=== PATIENT | female | born 1945 | race Caucasian/White ===

== ENCOUNTER → 2019-07-06 08:55 | Outpatient (CLI) | payer MEDICARE, MEDICAID, OTHER, SELFPAY ==
[2019-06-21 15:16] VITALS: BMI 31.8
--- NOTE | 2019-07-06 09:02 | ECHOD_ITS ---
Reason For Study: Afib/Flutter Procedure This was a 2D Doppler, Color Flow transthoracic echocardiogram. Contrast injection was performed. Exam performed in department. Left Ventricle Normal size and thickness. The estimated ejection fraction is 65 %. Stage 1 diastolic dysfunction. No regional wall motion abnormalities noted. Right Ventricle Normal size and thickness. Normal systolic function. Atria Normal left atrium. Normal right atrium. Normal atrial septum. Bubble contrast study negative for right to left interatrial shunt. Mitral Valve The mitral valve is structurally normal. No prolapse or stenosis seen. Tricuspid Valve Normal tricuspid valve. Trivial tricuspid valve insufficiency. Right ventricular systolic pressure estimated to be 29 mmHg. Aortic Valve Trisinus/trileaflet aortic valve. Pulmonic Valve Normal pulmonic valve. Great Vessels Normal aortic root. Normal arch. Normal inferior vena cava. Inferior vena cava collapse with sniff. Pericardium/Pleural No pericardial effusion. Medication 22 gauge I.V. with prn adaptor inserted into right arm. Performed a rapid injection of agitated mix of 9 cc saline and 1cc air to assess for atrial septal defect. MMode/2D Measurements & Calculations LVIDd: 4.3 cm IVSd: 1.1 cm Ao root diam: 3.1 cm LVIDs: 2.8 cm LVPWd: 1.1 cm LA dimension: 3.7 cm FS: 35.7 % LAV(MOD-bp): 40.1 ml LA A4 area: 14.8 cm2 LAV(MOD-bp) Indexed: 23.5 ml/m2 LAV(MOD-sp2): 43.9 ml LAV(MOD-sp4): 37.4 ml Time Measurements MV dec time: 0.26 sec Doppler Measurements & Calculations MV E max [place]: 76.6 cm/sec Lat Peak E' [place]: 2.8 cm/sec Med Peak E' [place]: 3.1 cm/sec MV A max [place]: 110.0 cm/sec E/E' lat: 27.0 E/E' med: 24.7 MV E/A: 0.70 MV V2 max: 129.0 cm/sec MV P1/2t max [place]: 85.7 cm/sec Ao V2 max: 144.2 cm/sec MV max P.7 mmHg MV P1/2t: 94.6 msec Ao max P.3 mmHg MV V2 mean: 57.1 cm/sec MV dec slope: 265.3 cm/sec2 Ao V2 mean: 96.6 cm/sec MV mean P.6 mmHg Ao mean P.1 mmHg MV V2 VTI: 36.1 cm MVA(P1/2t): 2.3 cm2 Ao V2 VTI: 31.2 cm LV V1 max: 110.5 cm/sec PA V2 max: 92.0 cm/sec PI dec slope: 178.3 cm/sec2 LV V1 max P.9 mmHg LV V1 mean P.3 mmHg LV V1 mean: 69.5 cm/sec LV V1 VTI: 25.8 cm TR max [place]: 244.1 cm/sec TR max P.8 mmHg Interpretation Summary The estimated ejection fraction is 65 %. Stage 1 diastolic dysfunction. Trivial tricuspid valve insufficiency. Right ventricular systolic pressure estimated to be 29 mmHg. Bubble contrast study negative for right to left interatrial shunt. Compared to echo report dated 09/18/2011, no appreciable changes noted. Pt appears to be in NSR. There is no comparison study available. Ordering Physician: Filiberto Dhaliwal Referring Physician: Filiberto Dhaliwal Performed By: Mart Ordoñez RCS
--- NOTE | 2019-07-06 09:02 | CDU_ITS ---
Reason For Study: CVA Rt. Velocities/BP Lt. Velocities/BP Prox CCA 79.9/10.8 cm/sec. Prox CCA 76.1/14.6 cm/sec. Mid CCA 65.6/9.5 cm/sec. Mid CCA 78.3/13.5 cm/sec. Dist CCA 77.3/14.7 cm/sec. Dist CCA 76.1/14.6 cm/sec. Prox ICA 104.7/15.2 cm/sec. Prox ICA 76.1/14.6 cm/sec. Mid ICA 95.5/18.8 cm/sec. Mid ICA 77.7/22.5 cm/sec. Dist ICA 93/18.6 cm/sec. Dist ICA 88.8/22.5 cm/sec. Rt. ICA/CCA = 1.4. Lt. ICA/CCA = 1.2. Prox ECA 98.2/10.8 cm/sec. Prox ECA 101.1/7.7 cm/sec. Rt. Vert. 54.2/10.2 cm/sec. Lt. Vert. 44.7/8.8 cm/sec. Right Extracranial There is homogeneous, smooth atherosclerotic plaque noted in the right common carotid artery. There is heterogeneous, irregular atherosclerotic plaque noted in the right internal carotid artery. There is heterogeneous, irregular atherosclerotic plaque noted in the right external carotid artery. Antegrade flow is noted in the right vertebral artery. Left Extracranial There is homogeneous, smooth atherosclerotic plaque noted in the left common carotid artery. There is heterogeneous, irregular atherosclerotic plaque noted in the left internal carotid artery. There is homogeneous, smooth atherosclerotic plaque noted in the left external carotid artery. Antegrade flow is noted in the left vertebral artery. Procedure Carotid Duplex 11598. Exam performed in department. Interpretation Summary Mild (<50%) stenosis right extracranial internal carotid. Mild (<50%) stenosis left extracranial internal carotid. Flow within the vertebral arteries is antegrade bilaterally. Ordering Physician: Filiberto Dhaliwal Referring Physician: Philomena Gamez Performed By: Payal West RVT
== END ==
PROVIDERS: Family Provider Family Medicine; PCP Physician Assistant; Referring Provider Internal Medicine Cardiovascular Disease; Visit Provider Internal Medicine Cardiovascular Disease
DX: R00.2 Palpitations (principal); R09.89 Other specified symptoms and signs involving the circulatory and respiratory systems
CPT/HCPCS: 93306; 93880; A4216

== ENCOUNTER → 2019-07-13 10:19 | Outpatient (CLI) | payer MEDICARE, MEDICAID, OTHER, SELFPAY ==
[2019-06-21 15:16] VITALS: BMI 31.8
--- NOTE | 2019-07-13 10:19 | STEWCON_ITS ---
Reason For Study: afib/flutter Stress Results Protocol: Dobtuamine Stress Echo Maximum Predicted HR: 149 bpm Target HR: 127 bpm % Maximum Predicted HR: 89 % DurationHeart Rate Stage (mm:ss) (bpm) BP Dose Comment baseline 63 170/81 7ml total definity given stage 1 3:21 67 182/8410.00 stage 2 3:00 81 174/8220.00 stage 3 3:00 111 182/7030.00 stage 4 2:51 133 / chest pain 8/10, mild shortness of breath recovery 80 170/82 chest pain resolved, shortness of breath resolved Stress Duration: 12:12 mm:ss Maximum Stress HR: 133 bpm Baseline Echocardiogram Findings The estimated ejection fraction is 65 %. Stress Echo Wall motion Data Resting WM Intermediate WM Stress WM Resting Wall Motion Wall Motion Stress No regional wall motion Mid-Anterior : Mildly abnormalities noted. hypokinetic. Basal anteroseptal: Mildly hypokinetic. Mid-anteroseptal : Mildly hypokinetic. EKG Data The baseline ECG displays normal sinus rhythm. The patient was titrated from 10 mcg to a maximun of 30 mcg of dobutamine during the stress. The maximum heart rate attained was 134 beats per minute. This was 89% of maximum predicted heart rate. During dobutamine infusion, there were no ST or T wave changes noted to suggest ischemia. Interpretation Summary The estimated ejection fraction is 65 %. Mid-Anterior : Mildly hypokinetic Basal anteroseptal: Mildly hypokinetic Mid-anteroseptal : Mildly hypokinetic Abnormal, adequate, dobutamine echocardiogram. Positive for ischemia by echocardiographic criteria. Mild PVCs noted. Hypertensive blood pressure response to dobutamine. In addition the patient developed 8 out of 10 chest pain during infusion which resolved during recovery. Final LVEF of 55%. Decrease sensitivity due to poor echo windows requiring Definity agent. Patient tolerated procedure well. The study was technically difficult. Contrast injection was performed. Ordering Physician: Filiberto Dhaliwal Referring Physician: Filiberto Dhaliwal Performed By: Risa Fraire, SUJEY, RVT
== END ==
PROVIDERS: Family Provider Family Medicine; PCP Physician Assistant; Referring Provider Internal Medicine Cardiovascular Disease; Visit Provider Internal Medicine Cardiovascular Disease
DX: I48.91 Unspecified atrial fibrillation (principal); R00.2 Palpitations; I25.10 Atherosclerotic heart disease of native coronary artery without angina pectoris; E66.9 Obesity, unspecified; G47.33 Obstructive sleep apnea (adult) (pediatric); Z86.73 Personal history of transient ischemic attack (TIA), and cerebral infarction without residual deficits
CPT/HCPCS: 93017; 93350; J7040; Q9957; A4216; C8928

== ENCOUNTER 2019-07-20 06:51 | Day surgery (SDC) | payer MEDICARE, OTHER, MEDICAID, SELFPAY ==
--- NOTE | 2019-06-21 04:17 | HP_ITS ---
HPI HPI History of Present Illness Surgical H&P: Yes Details: Mrs. Ibanez is a very pleasant 73-year-old female with a history of hypertension, obstructive sleep apnea diagnosed several years ago but unable to use CPAP, hyperlipidemia, diabetes, diabetic neuropathy, obstructive sleep apnea, coronary artery disease with history of left heart catheterization on at [facility] on 10/08/2010 which demonstrated nonobstructive coronary artery disease and LV function at the lower limit of normal. There is minimal plaquing of the proximal LAD. She had repeat catheterization on 09/24/[address] Curiel which showed minimal nonobstructive coronary disease and a history of stroke on 02/01/2019. In fact, the patient states that she has had a total of 5 strokes with residual right lower extremity weakness. Patient was seen by neurology at [facility] in 2018 for suspected stroke and was noted to have a right basal ganglia infarct along with small vessel disease. She does not appear to have been placed on anticoagulation therapy at that time. Patient has residual right lower extremity weakness, requiring her to use a leg brace. She had carotid ultrasound done on 02/01/2019 which showed mild irregular mixed plaque bilaterally. The patient had a 24-hour Holter report on 07/12/2018 and [facility] which showed rare atrial ectopy rare ventricular ectopy and no documented symptomatic events. Her most recent stress test on 03/13/2014 and [facility] showed reversible apical perfusion defect suspicious for ischemia. She subsequently underwent a dobutamine echocardiogram which was normal. No repeat catheterization is taken place since that time. Patient has been seen by Dr. Angella Higgins in April 2014 and atenolol was initiated at that time. Her most recent echocardiogram dated 02/01/2019 showed normal LV size and function with an EF of 60%, negative bubble study. On further history, the patient complains of chest pain on and off for years, mostly at rest but occasionally with exertion but most recently having worsening dyspnea on exertion, shortness of breath, and lower extremity edema. Patient has had chronic lower extremity edema but it appears to have worsened over the last several months. Patient states that she can only walk about half a block on flat ground before she has to stop due to dyspnea. She does walk with a cane. She has no associated nausea, vomiting, left arm pain, dizziness or diaphoresis. In addition she occasionally complains of heart racing, mostly when she is sitting watching television. She does drink a copious amount of diet Pepsi with caffeine however. She does not drink alcohol and has never smoked. In our office today her blood pressure is 130/64, and pulse is 80 and regular. Physical exam demonstrates no carotid bruits however she has a pronounced visible pulsation in her right carotid area, with 2+ upstroke bilaterally, clear lungs bilaterally, regular rate and rhythm, normal S1/S2. She has 1+ bilateral lower extremity edema left greater than right. EKG dated 09/09/2011 shows normal sinus rhythm, normal axis, normal intervals, no evidence of previous myocardial infarction. Lipid profile dated 02/28/2019 showed an HDL of 40 and an LDL of 127. Intake Vital Signs 06/21/19 Height 4 ft 11.75 in 06/21/19 Weight: 162 lb 06/21/19 BMI 31.8 06/21/19 BP 130/64 H 06/21/19 Blood Pressure Location Lt brachial 06/21/19 Position Sitting 06/21/19 Respiration 20 H 06/21/19 Pulse 80 06/21/19 Pulse Source Auscultation Intake Visit Reasons: PALPS ([facility] PCP) Allergies No Known Allergies Allergy (Verified 06/20/19 19:28) Medications cholecalciferol (vitamin D3) 1,250 mcg (50,000 unit) capsule 50,000 unit PO QWEEK 04/28/19 [History Confirmed 04/28/19] dulaglutide 1.5 mg/0.5 mL subcutaneous pen injector 1.5 mg SC QWEEK 04/28/19 [History Confirmed 04/28/19] ezetimibe 10 mg tablet 10 mg PO DAILY 04/28/19 [History Confirmed 06/21/19] gabapentin 300 mg capsule 300 mg PO QHS 04/28/19 [History Confirmed 04/28/19] hydrochlorothiazide 12.5 mg tablet 12.5 mg PO DAILY 04/28/19 [History Confirmed 04/28/19] insulin glargine 100 unit/mL (3 mL) subcutaneous pen 44 unit SC QHS ml 04/28/19 [History Confirmed 06/21/19] levothyroxine 25 mcg tablet 25 mcg PO DAILY 04/28/19 [History Confirmed 06/21/19] lisinopril 20 mg tablet 20 mg PO DAILY 04/28/19 [History Confirmed 06/21/19] metoprolol succinate 50 mg tablet,extended release 24 hr 50 mg PO DAILY 04/28/19 [History Confirmed 06/21/19] rosuvastatin 40 mg tablet 40 mg PO DAILY 04/28/19 [History Confirmed 06/21/19] aspirin 81 mg tablet,delayed release 81 mg PO DAILY 06/21/19 [History Confirmed 06/21/19] clopidogrel 75 mg tablet 75 mg PO DAILY #30 tab 06/21/19 [Rx Confirmed 06/21/19] dulaglutide 1.5 mg/0.5 mL subcutaneous pen injector 1.5 mg SC QWEEK 06/21/19 [History Confirmed 06/21/19] escitalopram oxalate 20 mg tablet 20 mg PO DAILY tab 06/21/19 [History Confirmed 06/21/19] insulin lispro 100 unit/mL subcutaneous pen 5 unit SC QACDINNER ml 06/21/19 [History Confirmed 06/21/19] meclizine 12.5 mg tablet 12.5 mg PO TID PRN 06/21/19 [History Confirmed 06/21/19] [facility] Medical History Palpitations (Chronic) Atherosclerosis of coronary artery of [place] heart without angina pectoris (Chronic) Obesity (Chronic) Stroke (Chronic 02/01/19) MILE (obstructive sleep apnea) (Chronic) GERD (gastroesophageal reflux disease) (Chronic) Diabetes mellitus (Chronic) Diabetic neuropathy (Chronic) Hypertension (Chronic) Hypothyroidism (Chronic) Hyperlipidemia (Chronic) Anxiety (Chronic) Depression (Chronic) Insomnia (Chronic) Lymphadenopathy (Chronic) Osteoarthritis (Chronic) Osteopenia (Chronic) Vitamin D deficiency (Chronic) Surgical History History of left heart catheterization (Chronic 09/24/11) History of back surgery (Chronic) History of cholecystectomy (Chronic) History of foot surgery (Chronic) History of tubal ligation (Chronic) Family History Mother CAD (coronary artery disease) CVA (cerebral vascular accident) Thyroid disorder Brother CAD (coronary artery disease) Hypertension Diabetes Sister CAD (coronary artery disease) Thyroid disorder Colon cancer Daughter CAD (coronary artery disease) Grandmother Skin cancer Social History (Updated 06/21/19 @ 16:17 by Filiberto Dhaliwal MD) Smoking Status: Never smoker alcohol intake: never ROS Const Const: Negative for fatigue, weakness, body ache, fever(s), headache(s), chills, frequent falls, night sweats, daytime sleepiness, difficulty sleeping, excessive sweating, weight gain, weight loss, increased appetite, poor appetite, anorexia or other Eyes Eyes: Negative for blind spots, loss of peripheral vision, transient loss of vision, blurry vision, change in vision, double vision, floaters, tunnel vision or other ENT ENT: Negative for headache(s), dizziness, hearing loss, tinnitus, Nosebleed/epistaxis, balance problems, post nasal drip, lip swelling, tongue swelling, bleeding gums, hoarseness, neck pain, dry mouth or other Cardio Chest Pain: No Resp Respiratory: Negative for SOB with activity, SOB at rest, SOB orthopnea\SOB lying down, Coughing up blood/hemoptysis, chest congestion, pain on inspiration, snoring, stridor, wheezing, crackles, paroxysmal nocturnal dyspnea or other GI GI: Negative nausea, vomiting, heartburn, constipation, belching, bloating, cramping, vomiting blood/hematemesis, bright, red blood in stools, black,tarry stools, loose stools, Difficulty Swallowing or other : Negative for hematuria, frequent nighttime urination/ nocturia, erectile dysfunction or abnormal vaginal bleeding Musc Musc: Negative for muscle aches/ myalgia, muscle weakness, joint pain or balance problems Skin Skin: Negative redness, non-healing lesions, rash, unusual bruising, skin ulcer, wounds, jaundice or other Neuro Neuro: Negative for dizziness, lightheadedness, near syncope, syncope, orthostatic symptoms, frequent falls, headache(s), weakness, confusion, memory loss, restless legs, blurry vision, double vision, vertigo, seizures, lack of coordination or other Eren Hematologic/Lymphatic: Negative for easy bleeding, easy bruising, enlarged lymph nodes or other Endo Endo: Negative for fatigue, cold intolerance, heat intolerance, excessive sweating, flushing, increased thirst/drinking, increased hunger, hair loss, hair growth or other Psych Psych: Negative for anxiety, depression, thoughts of harming anyone, thoughts of harming yourself, visual hallucinations, panic attacks or audible hallucinations Allergy Allergy/Immunology: Negative for throat swelling, Negative for tongue swelling, Negative for hives, Negative for rash, Negative for lip swelling Cardiology Exam Const Appearance: cooperative, healthy appearing and no acute distress Nutritional Appearance: well nourished Orientation: alert, oriented x3 and oriented to person Head Head: normal to inspection, normocephalic and atraumatic Nose: external nose normal Face and Sinus: face symmetric Mouth: oral mucosae normal Eyes General: appearance normal, both eyes and all related structures Eyelids: eyelids normal Conjunctivae: conjunctivae normal Pupils: PERRL and normal by confrontation EOM: EOM intact bilaterally Neck Neck: normal visual inspection and full ROM Carotids: normal carotid upstroke Chest Chest inspection: normal inspection of the chest Auscultation: Bilateral: Clear to Auscultation Cardio Palpation: normal PMI Rate: regular rate Rhythm: regular rhythm Heart sounds: S1 normal and S2 normal GI GI: normal to inspection, no hepatosplenomegaly and bowel sounds present Neuro General: alert, awake, oriented x3, CN's II-XI intact bilaterally and moves all extremities Skin Skin: no rashes or lesions noted Extremities Pulses: Normal: Right Femoral Pulse, Left Femoral Pulse, Right Dorsalis Pedis Pulse, Left Dorsalis Pedis Pulse, Right Posterior Tibial Pulse, Left Posterior Tibial Pulse, Right Radial Pulse, Left Radial Pulse Lower Extremity Edema: None: Bilateral Psych Psychological: normal affect Assessment & Plan 1. Atherosclerosis of coronary artery of [place] heart without angina pectoris I25.10 Mild, nonobstructive disease, EF 65 % per [facility] done 09/24/[address] Curiel @ [facility] Plan 1. Coronary artery disease: The patient complains of progressively worsening dyspnea on exertion, shortness of breath, decreased exercise capacity over the last several months. She also complains of both typical and atypical chest pain, but mostly at rest. She has had a cardiac work-up several years ago including a catheterization most recent of which was in 2011 which demonstrated nonobstructive coronary disease particularly of her proximal LAD. Given the patient's risk factors she may have had progression of coronary occlusive disease and despite a negative stress test, she may require repeat catheterization. To be sure, and given her history of stroke recently in February 2019, I am hesitant to proceed with left heart catheterization at this time. I would rather have the patient undergo a repeat dobutamine echocardiogram to determine if she has any evidence of anterior ischemia or otherwise ischemic territories. If this is grossly abnormal, the patient may require diagnostic coronary angiogram with a long sheath and a long [id number] J-wire to avoid inducing a CVA. In the meantime she will continue baby aspirin and we will add Plavix for presumed peripheral vascular disease and her previous CVA. We will hold off on anticoagulation until after her cardiac work-up has been completed. If she does not require repeat catheterization however, I would recommend discontinuation of Plavix and switching her to anticoagulation therapy given her chads vascular risk score. In addition I recommend discontinuation of her amlodipine as this may be contributing to her lower extremity edema but would continue hydrochlorothiazide, lisinopril and metoprolol. She will return in 2 weeks time for a blood pressure check. Orders Orders: 12 Lead EKG performed by [facility] Today Stress Test Echo w/o Contrast Today 2. Palpitations R00.2 Holter done 07/12/2018 @ [facility] showed NSR, <1% of scan PAC's and <1.1% PVC's. Some sinus tach with isolated aberrant beats. Plan 2. Palpitations: The patient has evidence of palpitations which apparently have not been adequately evaluated despite an aggressive cardiac work-up. I would recommend a 30-day event monitor in order to determine if she has evidence of paroxysmal atrial fibrillation. If she has evidence of atrial fibrillation at all, I would have a low threshold for lifelong anticoagulation given her multitude of strokes. I am uncertain why her current neurologist have not put her on anticoagulation or antiplatelet therapy other than baby aspirin. Orders Orders: 12 Lead EKG performed by [facility] Today 30 Day Event Recorder [employer] Today Echo Complete Today Stress Test Echo w/o Contrast Today Carotid Duplex Ultrasound Today 3. Stroke I63.9 3 mm X 8 mm focus in the posterior right parietal lobe per brain MRI 02/01/19. Pt states she has had 4 or 5 strokes. Plan 3. CVA: Again we will obtain a 30-day event monitor, 2D echo, and place her on dual antiplatelet therapy with baby aspirin and Plavix. If she has any evidence of atrial fibrillation on her event monitor I would discontinue her Plavix and add Eliquis or Coumadin. In addition the patient has what appears to be a profound pulsation in her right carotid area, but no evidence of carotid bruits. I recommended bilateral carotid ultrasound to evaluate her carotid system. Orders Orders: 12 Lead EKG performed by [facility] Today 30 Day Event Recorder [place] Today Stress Test Echo w/o Contrast Today 4. MILE (obstructive sleep apnea) G47.33 Plan 4. Obstructive sleep apnea: Unfortunately the patient is unable to tolerate her CPAP therapy. This may be contributing to her palpitations and paroxysmal atrial fibrillation. Orders Orders: 30 Day Event Recorder [place] Today Stress Test Echo w/o Contrast Today 5. Hyperlipidemia E78.5 Plan 5. Hyperlipidemia: Her most recent lipid profile showed adequate LDL reduction on dual antilipid therapy. Continue Crestor and Zetia. 6. Return office in 6 months. Plan Detail Other Orders Orders: Stress Test Echo w/o Contrast Today E66.9 Other Medications New: clopidogrel (Plavix) 75 mg PO DAILY 30 tabs 11RF Discontinued: amlodipine (Norvasc) Discontinued Reason: Order Changed 10 mg PO DAILY Follow Up +6M (Dhaliwal) +2 weeks (BP CHECK) Coding Level of Care Code Off vis,new,level 4 Diagnoses Atherosclerosis of coronary artery of [place] heart without angina pectoris I25.10 Palpitations R00.2 Stroke I63.9 MILE (obstructive sleep apnea) G47.33 Hyperlipidemia E78.5 Coding Level of Care Code Off vis,new,level 4 Diagnoses Atherosclerosis of coronary artery of [place] heart without angina pectoris I25.10 Palpitations R00.2 Stroke I63.9 MILE (obstructive sleep apnea) G47.33 Hyperlipidemia E78.5 06/21/19 1617 <Electronically signed by Filiberto Dhaliwal MD> Date _ Filiberto Dhaliwal MD
[2019-06-21 15:16] VITALS: BMI 31.8
[2019-07-18 09:42] VITALS: BMI 31.8
--- NOTE | 2019-07-18 09:53 | RAD_ITS ---
STUDY: X-RAY CHEST REASON FOR EXAM: Female, 73 years old. Preop heart catheter. TECHNIQUE: PA and lateral COMPARISON: None. FINDINGS: No evidence of pneumonia, pulmonary edema, pneumothorax or pleural effusion. Cardiac silhouette, hilar and mediastinal contours with no acute findings. Heart size normal. Atherosclerosis of the thoracic aorta. Degenerative osseous changes with no acute osseous abnormality. Cardiac monitoring device overlies the chest. Lumbar spine fusion hardware partially visible. Cholecystectomy surgical clips. RAD/Chest PA and Lateral IMPRESSION: No acute findings. Electronically Signed: David Veloz, at 8:01 EST Tel , Service support ,
[2019-07-18 11:14] LABS: Hematocrit 42.7 % (37-47); Hemoglobin 13.9 g/dL (12.0-15.0); Mean Corp Hgb Conc 32.6 g/dL (32-36); Mean Corpuscular Hgb 30.1 pg (27.0-32.0); Mean Corpuscular Volume 92.4 fL (81-99); Mean Platelet Vol. 9.6 fl (6.2-12.0); Platelet Count 308 K/mm3 (150-450); RBC Distribution Width CV 13.2 % (11.6-14.6); RBC Distribution Width SD 44.5 fl (35.1-43.9); Red Blood Count 4.62 M/mm3 (4.2-5.4); White Blood Count 6.6 K/mm3 (4.4-11.0)
[2019-07-18 11:20] LABS: Partial Thromboplast Time 33.1 Seconds (24.1-36.2); Prothrombin Time (Protime)PT. 13.2 SECONDS (11.7-14.9)
[2019-07-18 11:52] LABS: Anion Gap 7 (5-15); BUN 10 mg/dL (7-18); BUN/Creat Ratio 12.9 RATIO (10-20); Calcium,Total 9.6 mg/dL (8.5-10.1); Chloride 104 mmol/L (98-107); Creatinine, Serum 0.78 mg/dL (0.55-1.02); EST Glomerular Filtration Rate 78 mL/min (>60); Est Glom Filt Rate - Afr Amer 94 mL/min (>60); Glucose 83 mg/dL (74-106); Potassium 3.7 mmol/L (3.5-5.1); Sodium Level 138 mmol/L (136-145)
[2019-07-19 08:42] VITALS: BMI 31.6
[2019-07-20] VITALS (19 sets, daily range): BP systolic 123–201; BP diastolic 33–136; PULSE 57–83; RESP 9–22; TEMP 36.4–36.6; O2SAT 93–100; BMI 31.7; BMI 30.6
[2019-07-20 08:55] LABS: ACT Activated Clotting Time 241 sec (74-137)
--- NOTE | 2019-07-20 09:09 | CL.I_ITS ---
Patient Name: LAQUITA GILBERT Study Date: 07/20/2019 Performing: Filiberto Dhaliwal MD Ht: 60 inches 152 cm : 1945 Wt: 161.1 lbs 73 kg Age: 73 Gender: female BSA: 1.7 PROCEDURE(S) PERFORMED ND59-MAL/COR/LV NN11-KBO W OR WO PTCA, SINGLE CORONARY ARTERY CLINICAL PROFILE AND CO-MORBIDITIES Indications: New Onset Angina <= 2 months, Stable Known CAD Heart Failure: None Stress/Imaging Date: 07/13/2019 Stress Echocardiogram: Positive Low Risk Angina Classification Anginal Classification w/in 2 Weeks: Anginal Equivalent Dyspnea CAD Presentations: Unstable angina. Comorbidities/Risk Factors: Hypertension Dyslipidemia Diabetes Mellitus: Diabetes Therapy: Insulin CONCLUSIONS Normal LV size, wall motion,and systolic function Single vessel CAD of the LAD Non obstructive coronary arteries Successful PTCA/ODALIS mid LAD with a 2.25 x 16 Promus Synergy, followed immediately upstream with a 2.2 5 x 24 Promus Synergy, post dilated proximally with a 2.5 x 8 NC Balloon; 85%-->0%, no dissection. P t had identical bilateral arm pain and chest pain during stent deployment. Successful Mynx Control closure of RFA. RECOMMENDATIONS Referred for immediate PCI Management as per referring Manager Assessment Increase lisinopril to 20mg po bid DESCRIPTION OF PROCEDURE The patient arrived to the procedure lab. The risks and benefits of the procedure as well as a full d escription of our services here and lack of surgical backup were fully explained to the patient and/o r their significant other prior to the catheterization. The Timeout was completed, verifying the na ect patient and procedure. The patient's procedural site was prepped and draped in the usual fashion. Local anesthetic was given subcutaneously to right groin region with Lidocaine 2%. Using a modified Seldinger technique, arterial access was obtained via the right femoral artery, a 4Fr sheath was inse rted. Left Coronary Artery selective angiography was performed in multiple views using a 4 Fr. JL5 c atheter. Right Coronary Artery selective angiography was then performed in multiple views using a 4 F r. 3DRC catheter. Left Ventriculography was performed in RIVAS projection using a 4 Fr. Pigtail cathete r. LV to AO pullback pressures were then recordedThe images were reviewed and options discussed. A decision was then made to proceed with an Intervention, IVUS or other adjunct procedure. Arterial sheath was exchanged for a 6 Fr Sheath. EBU 3.75 Guide catheter was inserted and engaged into the LCA. BMW Guide wire was advanced to the LAD. 2x12 Emerge Balloon catheter was inserted. Bal loon catheter was advanced across lesion in the LAD, mid. PTCA balloon inflated at 6 atms for 6 secs. PTCA balloon inflated at 4 atms for 8 secs. Angiogram performed post balloon dilatation. 2.25x16 Syn ergy Drug Eluting stent was inserted. Drug Eluting stent was advanced across the lesion in the LAD, m id. 2.25x24 Synergy Drug Eluting stent was inserted. Drug Eluting stent was advanced across the lesio n in the LAD, mid. Angiogram performed post stent deployment. 2.5x8 NC Emerge Balloon catheter was in serted. Balloon catheter was inserted post stent. Angiogram performed post stent deployment. Contrast was injected through the sheath and the Right Iliac and Femoral artery were assessed for possible cl osure device. The arterial sheath was pulled and a Mynx closure device was deployed for hemostasis CORONARY ANGIOGRAPHY DOMINANCE: Right Dominant LEFT HEART ASSESSMENT Left Ventricular Ejection Fraction: by LV Gram 65 % Normal Left Ventricular systolic function Normal LV wall motion LEFT MAIN: Mild calcification, No significant disease noted LEFT ANTERIOR DESCENDING ARTERY: PROX LAD: Mild calcification MID LAD: 85 % Stenosis, 75 % Stenosis CIRCUMFLEX ARTERY: MID CIRC: Mild luminal irregularities less than 30% RIGHT CORONARY ARTERY: Non-obstructive RT PDA: Proximal - Mild luminal irregularities less than 30% INTERVENTION INFORMATION LESION SITE: LAD (Mid) Lesion Complexity: Non-High/Non-C, lesion at bifurcation: No, thrombus present: No, lesion length: 16 mm, culprit lesion: No Pre Stenosis: 75 % Pre intervention NADYA flow: 3 PROCEDURE: Drug Eluting Stent with pre and post dilatation Post Stenosis: 0 % Post intervention NADYA flow: 3 Lesion Devices: Medtronic 6 Fr EBU3.75 100cm Guide Catheter Rubio .014 BMW [place] Straight 190cm Magdy Sci EMERGE MR 2.00x12 BALLOON Magdy Sci Synergy MR ODALIS 2.25x16 Magdy Sci Synergy MR ODALIS 2.25x24 Magdy Sci NC EMERGE MR 2.50x08 BALLOON LESION SITE: LAD (Mid) Lesion Complexity: High/C, lesion at bifurcation: No, thrombus present: No, lesion length: 24 mm, cul prit lesion: Yes Pre Stenosis: 85 % Pre intervention NADYA flow: 3 PROCEDURE: Drug Eluting Stent with pre and post dilatation Post Stenosis: 0 % Post intervention NADYA flow: 3 COMPLICATIONS No Complications PROCEDURE MEDICATIONS Versed 1 mg IV Versed 1 mg IV Fentanyl 25 mcg IV Oxygen: 2 L/min via nasal cannula Baby Aspirin (81mg) 1 Tabs PO @ 07/20/2019 07:05:50 Heparin 6000 unit(s) IV 07/20/2019 08:18:00 Nitro 200 mcg IC 07/20/2019 08:12:26 Nitro 200 mcg IC 07/20/2019 08:12:26 Nitro 200 mcg IC 07/20/2019 08:20:49 Nitro 200 mcg IC 07/20/2019 08:25:36 Nitro 200 mcg IC 07/20/2019 08:33:48 Plavix 75 mg PO 07/20/2019 07:05:57 SUMMARY OF HEMODYNAMIC DATA Time AIR REST ECG 07:10:48 AO 195/73 (119) SA 08:10:48 LV 168/-17, 15 08:16:46 LV 171/-19, 9 08:16:52 LVp 172/-20, 3 08:16:57 AOp 171/66 (107) 08:17:02 AO 155/73 (111) 08:32:30 Signed By Filiberto Dhaliwal MD On 07/20/2019 09:08:29 Filiberto Dhaliwal MD
--- NOTE | 2019-07-20 09:13 | PCM.HP.BLA ---
Problem List (1) Abnormal stress test Status: Acute (2) Palpitations Status: Chronic Comment: Holter done 07/12/2018 @ [facility] showed NSR, <1% of scan PAC's and <1.1% PVC's. Some sinus tach with isolated aberrant beats. (3) Atherosclerosis of coronary artery of [place] heart without angina pectoris Status: Chronic Comment: Mild, nonobstructive disease, EF 65 % per [facility] done 09/24/[address] Curiel @ [facility] (4) Diabetes mellitus Status: Chronic (5) Hypertension Status: Chronic (6) Hyperlipidemia Status: Chronic History and Physical Date of Admission: 07/20/19 [facility] [place] [id number] [facility] [place] [address] OFFICE VISIT Date of Service: 06/21/19 MR#: [id number] Acct: [id number] Name: LAQUITA IBANEZ Rep #: [id number] : 1945 Provider: Filiberto Dhaliwal MD Age/Sex: 73/F [place] [facility] Status: Signed HPI HPI History of Present Illness Surgical H&P: Yes Details: Mrs. Ibanez is a very pleasant 73-year-old female with a history of hypertension, obstructive sleep apnea diagnosed several years ago but unable to use CPAP, hyperlipidemia, diabetes, diabetic neuropathy, obstructive sleep apnea, coronary artery disease with history of left heart catheterization on at [facility] on 10/08/2010 which demonstrated nonobstructive coronary artery disease and LV function at the lower limit of normal. There is minimal plaquing of the proximal LAD. She had repeat catheterization on 09/24/[address] Curiel which showed minimal nonobstructive coronary disease and a history of stroke on 02/01/2019. In fact, the patient states that she has had a total of 5 strokes with residual right lower extremity weakness. Patient was seen by neurology at [facility] in 2018 for suspected stroke and was noted to have a right basal ganglia infarct along with small vessel disease. She does not appear to have been placed on anticoagulation therapy at that time. Patient has residual right lower extremity weakness, requiring her to use a leg brace. She had carotid ultrasound done on 02/01/2019 which showed mild irregular mixed plaque bilaterally. The patient had a 24-hour Holter report on 07/12/2018 and [facility] which showed rare atrial ectopy rare ventricular ectopy and no documented symptomatic events. Her most recent stress test on 03/13/2014 and [facility] showed reversible apical perfusion defect suspicious for ischemia. She subsequently underwent a dobutamine echocardiogram which was normal. No repeat catheterization is taken place since that time. Patient has been seen by Dr. Angella Higgins in April 2014 and atenolol was initiated at that time. Her most recent echocardiogram dated 02/01/2019 showed normal LV size and function with an EF of 60%, negative bubble study. On further history, the patient complains of chest pain on and off for years, mostly at rest but occasionally with exertion but most recently having worsening dyspnea on exertion, shortness of breath, and lower extremity edema. Patient has had chronic lower extremity edema but it appears to have worsened over the last several months. Patient states that she can only walk about half a block on flat ground before she has to stop due to dyspnea. She does walk with a cane. She has no associated nausea, vomiting, left arm pain, dizziness or diaphoresis. In addition she occasionally complains of heart racing, mostly when she is sitting watching television. She does drink a copious amount of diet Pepsi with caffeine however. She does not drink alcohol and has never smoked. In our office today her blood pressure is 130/64, and pulse is 80 and regular. Physical exam demonstrates no carotid bruits however she has a pronounced visible pulsation in her right carotid area, with 2+ upstroke bilaterally, clear lungs bilaterally, regular rate and rhythm, normal S1/S2. She has 1+ bilateral lower extremity edema left greater than right. EKG dated 09/09/2011 shows normal sinus rhythm, normal axis, normal intervals, no evidence of previous myocardial infarction. Lipid profile dated 02/28/2019 showed an HDL of 40 and an LDL of 127. Intake Vital Signs 06/21/19 Height 4 ft 11.75 in 06/21/19 Weight: 162 lb 06/21/19 BMI 31.8 06/21/19 BP 130/64 H 06/21/19 Blood Pressure Location Lt brachial 06/21/19 Position Sitting 06/21/19 Respiration 20 H 06/21/19 Pulse 80 06/21/19 Pulse Source Auscultation Intake Visit Reasons: PALPS (M CLEANING PCP) Allergies No Known Allergies Allergy (Verified 06/20/19 19:28) Medications cholecalciferol (vitamin D3) 1,250 mcg (50,000 unit) capsule 50,000 unit PO QWEEK 04/28/19 [History Confirmed 04/28/19] dulaglutide 1.5 mg/0.5 mL subcutaneous pen injector 1.5 mg SC QWEEK 04/28/19 [History Confirmed 04/28/19] ezetimibe 10 mg tablet 10 mg PO DAILY 04/28/19 [History Confirmed 06/21/19] gabapentin 300 mg capsule 300 mg PO QHS 04/28/19 [History Confirmed 04/28/19] hydrochlorothiazide 12.5 mg tablet 12.5 mg PO DAILY 04/28/19 [History Confirmed 04/28/19] insulin glargine 100 unit/mL (3 mL) subcutaneous pen 44 unit SC QHS ml 04/28/19 [History Confirmed 06/21/19] levothyroxine 25 mcg tablet 25 mcg PO DAILY 04/28/19 [History Confirmed 06/21/19] lisinopril 20 mg tablet 20 mg PO DAILY 04/28/19 [History Confirmed 06/21/19] metoprolol succinate 50 mg tablet,extended release 24 hr 50 mg PO DAILY 04/28/19 [History Confirmed 06/21/19] rosuvastatin 40 mg tablet 40 mg PO DAILY 04/28/19 [History Confirmed 06/21/19] aspirin 81 mg tablet,delayed release 81 mg PO DAILY 06/21/19 [History Confirmed 06/21/19] clopidogrel 75 mg tablet 75 mg PO DAILY #30 tab 06/21/19 [Rx Confirmed 06/21/19] dulaglutide 1.5 mg/0.5 mL subcutaneous pen injector 1.5 mg SC QWEEK 06/21/19 [History Confirmed 06/21/19] escitalopram oxalate 20 mg tablet 20 mg PO DAILY tab 06/21/19 [History Confirmed 06/21/19] insulin lispro 100 unit/mL subcutaneous pen 5 unit SC QACDINNER ml 06/21/19 [History Confirmed 06/21/19] meclizine 12.5 mg tablet 12.5 mg PO TID PRN 06/21/19 [History Confirmed 06/21/19] PFSH Medical History Palpitations (Chronic) Atherosclerosis of coronary artery of [place] heart without angina pectoris (Chronic) Obesity (Chronic) Stroke (Chronic 02/01/19) MILE (obstructive sleep apnea) (Chronic) GERD (gastroesophageal reflux disease) (Chronic) Diabetes mellitus (Chronic) Diabetic neuropathy (Chronic) Hypertension (Chronic) Hypothyroidism (Chronic) Hyperlipidemia (Chronic) Anxiety (Chronic) Depression (Chronic) Insomnia (Chronic) Lymphadenopathy (Chronic) Osteoarthritis (Chronic) Osteopenia (Chronic) Vitamin D deficiency (Chronic) Surgical History History of left heart catheterization (Chronic 09/24/11) History of back surgery (Chronic) History of cholecystectomy (Chronic) History of foot surgery (Chronic) History of tubal ligation (Chronic) Family History Mother CAD (coronary artery disease) CVA (cerebral vascular accident) Thyroid disorder Brother CAD (coronary artery disease) Hypertension Diabetes Sister CAD (coronary artery disease) Thyroid disorder Colon cancer Daughter CAD (coronary artery disease) Grandmother Skin cancer Social History (Updated 06/21/19 @ 16:17 by Filiberto Dhailwal MD) Smoking Status: Never smoker alcohol intake: never ROS Const Const: Negative for fatigue, weakness, body ache, fever(s), headache(s), chills, frequent falls, night sweats, daytime sleepiness, difficulty sleeping, excessive sweating, weight gain, weight loss, increased appetite, poor appetite, anorexia or other Eyes Eyes: Negative for blind spots, loss of peripheral vision, transient loss of vision, blurry vision, change in vision, double vision, floaters, tunnel vision or other ENT ENT: Negative for headache(s), dizziness, hearing loss, tinnitus, Nosebleed/epistaxis, balance problems, post nasal drip, lip swelling, tongue swelling, bleeding gums, hoarseness, neck pain, dry mouth or other Cardio Chest Pain: No Resp Respiratory: Negative for SOB with activity, SOB at rest, SOB orthopnea\SOB lying down, Coughing up blood/hemoptysis, chest congestion, pain on inspiration, snoring, stridor, wheezing, crackles, paroxysmal nocturnal dyspnea or other GI GI: Negative nausea, vomiting, heartburn, constipation, belching, bloating, cramping, vomiting blood/hematemesis, bright, red blood in stools, black,tarry stools, loose stools, Difficulty Swallowing or other : Negative for hematuria, frequent nighttime urination/ nocturia, erectile dysfunction or abnormal vaginal bleeding Musc Musc: Negative for muscle aches/ myalgia, muscle weakness, joint pain or balance problems Skin Skin: Negative redness, non-healing lesions, rash, unusual bruising, skin ulcer, wounds, jaundice or other Neuro Neuro: Negative for dizziness, lightheadedness, near syncope, syncope, orthostatic symptoms, frequent falls, headache(s), weakness, confusion, memory loss, restless legs, blurry vision, double vision, vertigo, seizures, lack of coordination or other Eren Hematologic/Lymphatic: Negative for easy bleeding, easy bruising, enlarged lymph nodes or other Endo Endo: Negative for fatigue, cold intolerance, heat intolerance, excessive sweating, flushing, increased thirst/drinking, increased hunger, hair loss, hair growth or other Psych Psych: Negative for anxiety, depression, thoughts of harming anyone, thoughts of harming yourself, visual hallucinations, panic attacks or audible hallucinations Allergy Allergy/Immunology: Negative for throat swelling, Negative for tongue swelling, Negative for hives, Negative for rash, Negative for lip swelling Cardiology Exam Const Appearance: cooperative, healthy appearing and no acute distress Nutritional Appearance: well nourished Orientation: alert, oriented x3 and oriented to person Head Head: normal to inspection, normocephalic and atraumatic Nose: external nose normal Face and Sinus: face symmetric Mouth: oral mucosae normal Eyes General: appearance normal, both eyes and all related structures Eyelids: eyelids normal Conjunctivae: conjunctivae normal Pupils: PERRL and normal by confrontation EOM: EOM intact bilaterally Neck Neck: normal visual inspection and full ROM Carotids: normal carotid upstroke Chest Chest inspection: normal inspection of the chest Auscultation: Bilateral: Clear to Auscultation Cardio Palpation: normal PMI Rate: regular rate Rhythm: regular rhythm Heart sounds: S1 normal and S2 normal GI GI: normal to inspection, no hepatosplenomegaly and bowel sounds present Neuro General: alert, awake, oriented x3, CN's II-XI intact bilaterally and moves all extremities Skin Skin: no rashes or lesions noted Extremities Pulses: Normal: Right Femoral Pulse, Left Femoral Pulse, Right Dorsalis Pedis Pulse, Left Dorsalis Pedis Pulse, Right Posterior Tibial Pulse, Left Posterior Tibial Pulse, Right Radial Pulse, Left Radial Pulse Lower Extremity Edema: None: Bilateral Psych Psychological: normal affect Assessment & Plan 1. Atherosclerosis of coronary artery of [place] heart without angina pectoris I25.10 Mild, nonobstructive disease, EF 65 % per [facility] done 09/24/[address] Curiel @ [facility] Plan 1. Coronary artery disease: The patient complains of progressively worsening dyspnea on exertion, shortness of breath, decreased exercise capacity over the last several months. She also complains of both typical and atypical chest pain, but mostly at rest. She has had a cardiac work-up several years ago including a catheterization most recent of which was in 2011 which demonstrated nonobstructive coronary disease particularly of her proximal LAD. Given the patient's risk factors she may have had progression of coronary occlusive disease and despite a negative stress test, she may require repeat catheterization. To be sure, and given her history of stroke recently in February 2019, I am hesitant to proceed with left heart catheterization at this time. I would rather have the patient undergo a repeat dobutamine echocardiogram to determine if she has any evidence of anterior ischemia or otherwise ischemic territories. If this is grossly abnormal, the patient may require diagnostic coronary angiogram with a long sheath and a long [id number] J-wire to avoid inducing a CVA. In the meantime she will continue baby aspirin and we will add Plavix for presumed peripheral vascular disease and her previous CVA. We will hold off on anticoagulation until after her cardiac work-up has been completed. If she does not require repeat catheterization however, I would recommend discontinuation of Plavix and switching her to anticoagulation therapy given her chads vascular risk score. In addition I recommend discontinuation of her amlodipine as this may be contributing to her lower extremity edema but would continue hydrochlorothiazide, lisinopril and metoprolol. She will return in 2 weeks time for a blood pressure check. Orders Orders: 12 Lead EKG performed by [facility] Today Stress Test Echo w/o Contrast Today 2. Palpitations R00.2 Holter done 07/12/2018 @ [facility] showed NSR, <1% of scan PAC's and <1.1% PVC's. Some sinus tach with isolated aberrant beats. Plan 2. Palpitations: The patient has evidence of palpitations which apparently have not been adequately evaluated despite an aggressive cardiac work-up. I would recommend a 30-day event monitor in order to determine if she has evidence of paroxysmal atrial fibrillation. If she has evidence of atrial fibrillation at all, I would have a low threshold for lifelong anticoagulation given her multitude of strokes. I am uncertain why her current neurologist have not put her on anticoagulation or antiplatelet therapy other than baby aspirin. Orders Orders: 12 Lead EKG performed by [facility] Today 30 Day Event Recorder [employer] Today Echo Complete Today Stress Test Echo w/o Contrast Today Carotid Duplex Ultrasound Today 3. Stroke I63.9 3 mm X 8 mm focus in the posterior right parietal lobe per brain MRI 02/01/19. Pt states she has had 4 or 5 strokes. Plan 3. CVA: Again we will obtain a 30-day event monitor, 2D echo, and place her on dual antiplatelet therapy with baby aspirin and Plavix. If she has any evidence of atrial fibrillation on her event monitor I would discontinue her Plavix and add Eliquis or Coumadin. In addition the patient has what appears to be a profound pulsation in her right carotid area, but no evidence of carotid bruits. I recommended bilateral carotid ultrasound to evaluate her carotid system. Orders Orders: 12 Lead EKG performed by [facility] Today 30 Day Event Recorder [employer] Today Stress Test Echo w/o Contrast Today 4. MILE (obstructive sleep apnea) G47.33 Plan 4. Obstructive sleep apnea: Unfortunately the patient is unable to tolerate her CPAP therapy. This may be contributing to her palpitations and paroxysmal atrial fibrillation. Orders Orders: 30 Day Event Recorder [employer] Today Stress Test Echo w/o Contrast Today 5. Hyperlipidemia E78.5 Plan 5. Hyperlipidemia: Her most recent lipid profile showed adequate LDL reduction on dual antilipid therapy. Continue Crestor and Zetia. 6. Return office in 6 months. Plan Detail Other Orders Orders: Stress Test Echo w/o Contrast Today E66.9 Other Medications New: clopidogrel (Plavix) 75 mg PO DAILY 30 tabs 11RF Discontinued: amlodipine (Norvasc) Discontinued Reason: Order Changed 10 mg PO DAILY Follow Up +6M (Dhaliwal) +2 weeks (BP CHECK) Coding Level of Care Code Off vis,new,level 4 Diagnoses Atherosclerosis of coronary artery of [place] heart without angina pectoris I25.10 Palpitations R00.2 Stroke I63.9 MILE (obstructive sleep apnea) G47.33 Hyperlipidemia E78.5 Coding Level of Care Code Off vis,new,level 4 Diagnoses Atherosclerosis of coronary artery of [place] heart without angina pectoris I25.10 Palpitations R00.2 Stroke I63.9 MILE (obstructive sleep apnea) G47.33 Hyperlipidemia E78.5 06/21/19 1617 <Electronically signed by Filiberto Dhaliwal MD> Date Filiberto Dhaliwal MD [facility] Signature: Date (if applicable) CC: JULIO CLEANING ~ Interventional cardiology addendum: Patient seen and examined, and risk/benefits of the procedure were thoroughly explained the patient and informed consent was obtained. Cardiac catheterization to follow.
--- NOTE | 2019-07-20 09:35 | EKG12_ITS ---
Test Reason : S/P PCI Blood Pressure : / mmHG Vent. Rate : 061 BPM Atrial Rate : 061 BPM P-R Int : 170 ms QRS Dur : 088 ms QT Int : 430 ms P-R-T Axes : 005 -25 026 degrees QTc Int : 432 ms Normal sinus rhythm Normal ECG No previous ECGs available Confirmed by CEE DHALIWAL ([id number]), acquisitions editor BASIA ANDRE ([id number]) on 07/22/2019 1:20:57 PM Referred By: Cee Dhaliwal Confirmed By:CEE DHALIWAL
--- NOTE | 2019-07-20 09:38 | DCINST_ITS ---
Discharge Diet: Low fat/ Low Cholesterol Discharge Activity: Return to Normal Activity May shower in (days): 1 - No tub baths for 5 days May resume sexual activity in: 1-2 weeks Lifting Restrictions: Do not lift anything greater than 10 pounds for 3 days Call your doctor if your incision/area has: Continuous Slow Oozing, Sudden Increased Bleeding, Increased Pain/ Swelling, Increased Redness, Foul Smelling Discharge, Swelling at the incision site Call your doctor if you observe: Fever of 101 or Higher, Shortness of breath, Chest pain Remove Dressing in (days):: 1 Cleanse incision/area with: Soap & Water Additional Instructions: You will continue with Aspirin and Plavix therapy. You will remain on Plavix therapy for at least 1 year. If anyone asks you to stop this, please call the [facility] Office at [phone]. You are scheduled for an office appointment on 08/09/2019 at 3:00 PM with Jovon Cordova Nurse Practitioner. If you have any questions or concerns, please call the [facility]. Allergies/Adverse Reactions: Allergies No Known Allergies Allergy (Verified 06/20/19 19:28) Medications to take at Discharge cholecalciferol (vitamin D3) 1,250 mcg (50,000 unit) capsule 50,000 unit PO QWEEK 04/28/19 dulaglutide 1.5 mg/0.5 mL subcutaneous pen injector 1.5 mg SC QWEEK 04/28/19 ezetimibe 10 mg tablet 10 mg PO DAILY 04/28/19 gabapentin 300 mg capsule 300 mg PO QHS 04/28/19 insulin glargine 100 unit/mL (3 mL) subcutaneous pen 44 unit SC QHS ml 04/28/19 levothyroxine 25 mcg tablet 25 mcg PO DAILY 04/28/19 lisinopril 20 mg tablet 20 mg PO DAILY 04/28/19 metoprolol succinate 50 mg tablet,extended release 24 hr 50 mg PO DAILY 04/28/19 rosuvastatin 40 mg tablet 40 mg PO DAILY 04/28/19 aspirin 81 mg tablet,delayed release 81 mg PO DAILY 06/21/19 clopidogrel 75 mg tablet 75 mg PO DAILY #30 tab 06/21/19 escitalopram oxalate 20 mg tablet 20 mg PO DAILY tab 06/21/19 insulin lispro 100 unit/mL subcutaneous pen 5 unit SC QACDINNER ml 01/14/20 meclizine 12.5 mg tablet 12.5 mg PO TID PRN 06/21/19 hydrochlorothiazide 12.5 mg tablet 12.5 mg PO DAILY #30 tab 07/12/19 Orders to be completed after discharge: Phase II, Outpatient Cardiac Rehab Location: None Selected Primary Care Physician: Philomena Gamez PA [Primary Care Provider] - Test Results: Test results from this visit will be discussed in further detail at your follow- up appointment, if applicable. Please Follow Up With: Dr. Dhaliwal When: 08/12/2019 at 2:30 PM Proposed Discharge Date: 07/21/19 Cardiac Rehabilitation Info Cardiac Rehabilitation Program Information: Cardiac Rehabilitation is important for patients like you who are recovering from a heart problem. Cardiac rehabilitation programs are recognized as integral to the continued care of the patient with coronary heart disease. The cardiac rehabilitation program is designed to optimize a patient's physical, psychological, and social functioning. Health managed care coordinator work in cardiac rehabilitation programs and assist you with getting the treatments you need to get stronger and healthier - like exercise, healthy eating habits, and medications. Cardiac rehabilitation has been show to help people with heart problems live longer and have better life enjoyment than people who do not go to cardiac rehabilitation. Please contact the Cardiac Rehabilitation Program at [facility] at in two weeks if you have not heard from them.
--- NOTE | 2019-07-20 09:41 | PCM.PN.BLA ---
Progress Note Aspirin at discharge? Yes, 81 mg p.o. daily Antiplatelet therapy at discharge? Yes, Plavix 75 mg p.o. daily THADDEUS/ARB at discharge? Yes, Lisinopril 20 mg p.o. daily Statins at discharge? Yes, Rosuvastatin 40 mg p.o. daily Beta-erica at discharge? Yes, Metoprolol Succinate 50 mg p.o. daily.
[2019-07-20] MEDS: 0.9% Normal Saline 1,000 ML 150 ML IV (09:45)
--- NOTE | 2019-07-20 10:00 | EKG12_ITS ---
Test Reason : AM EKG Blood Pressure : / mmHG Vent. Rate : 068 BPM Atrial Rate : 068 BPM P-R Int : 178 ms QRS Dur : 088 ms QT Int : 400 ms P-R-T Axes : 009 -27 027 degrees QTc Int : 425 ms Normal sinus rhythm Normal ECG When compared with ECG of 20-JUL-2019 09:14, MANUAL COMPARISON REQUIRED, DATA IS UNCONFIRMED Confirmed by CEE DHALIWAL ([id number]), digital editor BASIA ANDRE ([id number]) on 07/22/2019 1:21:08 PM Referred By: Cee Dhaliwal Confirmed By:CEE DHALIWAL
[2019-07-20] MEDS: Metoprolol(XL)Succ 50 MG Tablet PO (10:50)
[2019-07-20] MEDS: Ezetimibe 10 MG Tablet PO (10:50)
[2019-07-20] MEDS: hydroCHLOROthiazide 12.5mg 12.5 MG PO (10:50)
[2019-07-20] MEDS: Lisinopril 20 MG Tablet PO ×2 (10:50→22:29)
[2019-07-20] MEDS: Escitalopram Oxalate 20 MG Tablet PO (10:50)
--- NOTE | 2019-07-20 11:25 | CRPHASE1 ---
Patient Communication PHII Cardiac Rehab Discussed with Patient:: Yes Guide to Cardiac Rehab Given to Patient:: Yes Cardiac Rehab Facility Choice List Given to Patient:: Yes - Pt chooses [facility] Choice Program Other:: Communication Given to CR, With permission faxed order and referral information - [facility]. Pt does not drive Project Facilitator:: Filiberto Dhaliwal Refer Phase II Cardiac Rehab:: Yes Sessions:: 36 sessions - 3 days/wk, 12 weeks Risk Factors/Lifestyle Height: 5 ft 1 in Weight:: 73.482 kg BMI: 30.6 Family History: Family History (Last Reviewed 06/21/19 @ 15:16 by Daysi Bello) Mother CAD (coronary artery disease) CVA (cerebral vascular accident) Thyroid disorder Brother CAD (coronary artery disease) Hypertension Diabetes Sister CAD (coronary artery disease) Thyroid disorder Colon cancer Daughter CAD (coronary artery disease) Grandmother Skin cancer Phase I Education Given On:: [place], Nutrition, Antiplatelet medication, CHF, Smoking cessation, Diabetes - Type I, Diabetes - Type II Knowledge of Condition:: Yes Hospital Course Cardiac Cath Date:: 07/20/19 Medical/Surgical History Hypertension:: Yes Cardiac Rehabilitation Info Cardiac Rehabilitation Program Information: Cardiac Rehabilitation is important for patients like you who are recovering from a heart problem. Cardiac rehabilitation programs are recognized as integral to the continued care of the patient with coronary heart disease. The cardiac rehabilitation program is designed to optimize a patient's physical, psychological, and social functioning. Health childcare center director work in cardiac rehabilitation programs and assist you with getting the treatments you need to get stronger and healthier - like exercise, healthy eating habits, and medications. Cardiac rehabilitation has been show to help people with heart problems live longer and have better life enjoyment than people who do not go to cardiac rehabilitation. Please contact the Cardiac Rehabilitation Program at [facility] at in two weeks if you have not heard from them.
--- NOTE | 2019-07-20 11:31 | CRPH1.INSTRU ---
General Education CAD and cardiac anatomy and function:: Patient communicates acknowledgment Explanation of diagnoses and procedures:: Patient communicates acknowledgment Sign/Symptoms of [place]:: Patient communicates acknowledgment Antiplatelet therapy: Patient communicates acknowledgment Proper use of NTG-SL: Not instructed Emergency procedures and activation of EMS: Patient communicates acknowledgment Compliance of all prescribed medications: Patient communicates acknowledgment Smoking Nicotine/Smoking Response Code:: Patient communicates acknowledgment Dyslipidemia Dyslipidemia Response Code:: Patient communicates acknowledgment Overweight/Obesity Patient Overweight/Obesity Risk Factors Are:: Obesity - > or = 30 Recommendations Include:: Weight loss of 5-10%, Reduced calorie diet, Exercise 5-7 times/week Overweight/Obesity:: Patient communicates acknowledgment Hypertension Recommendations Include:: Maintain BP <130/85, BP <130/80 if diabetic, DASH dietary guidelines, Decrease/maintain normal body weight, Moderation of ETOH Hypertension:: Patient communicates acknowledgment Heart Disease Heart Disease Response Code:: Patient communicates acknowledgment Diabetes Diabetes:: Patient communicates acknowledgment Metabolic Syndrome Metabolic Syndrome Response Code:: Patient communicates acknowledgment Sedentary Sedentary Response Code:: Patient communicates acknowledgment Stress Stress Response Code:: Patient communicates acknowledgment
[2019-07-20 17:06] LABS: Bedside Glucose 126 mg/dL (70-110)
[2019-07-20] MEDS: Gabapentin 300 MG Capsule PO (22:28)
[2019-07-20] MEDS: Atorvastatin Calcium 80 MG Tablet PO (22:28)
[2019-07-20 22:46] LABS: Bedside Glucose 135 mg/dL (70-110)
[2019-07-21] VITALS (13 sets, daily range): BP systolic 103–157; BP diastolic 44–66; PULSE 60–74; RESP 11–21; TEMP 36.6; O2SAT 93–97
[2019-07-21] MEDS: Levothyroxine 25 MCG TABLET PO (05:06)
[2019-07-21 05:16] LABS: Hematocrit 39.8 % (37-47); Hemoglobin 12.9 g/dL (12.0-15.0); Mean Corp Hgb Conc 32.4 g/dL (32-36); Mean Corpuscular Hgb 29.5 pg (27.0-32.0); Mean Corpuscular Volume 90.9 fL (81-99); Mean Platelet Vol. 9.2 fl (6.2-12.0); Platelet Count 287 K/mm3 (150-450); RBC Distribution Width CV 13.1 % (11.6-14.6); RBC Distribution Width SD 43.7 fl (35.1-43.9); Red Blood Count 4.38 M/mm3 (4.2-5.4); White Blood Count 8.6 K/mm3 (4.4-11.0)
[2019-07-21 05:39] LABS: ALB/GLOB Ratio 0.8 RATIO (0.9-2.4); AST(SGOT) 35 U/L (15-37); Alanine Aminotransfer ALT/SGPT 25 U/L (13-56); Albumin, Serum 2.9 g/dL (3.2-5.0); Alkaline Phosphatase 112 U/L (45-117); Anion Gap 6 (5-15); BUN 12 mg/dL (7-18); BUN/Creat Ratio 14.3 RATIO (10-20); Calcium,Total 8.8 mg/dL (8.5-10.1); Chloride 106 mmol/L (98-107); Cholesterol 153 mg/dL (200); Creatinine, Serum 0.84 mg/dL (0.55-1.02); EST Glomerular Filtration Rate 71 mL/min (>60); Est Glom Filt Rate - Afr Amer 86 mL/min (>60); Estimated Creatinine Clearance 46.35 ml/min; Globulin 3.6 g/dL (2.2-4.2); Glucose 96 mg/dL (74-106); High Density Lipoprotein 35 mg/dL; Potassium 3.8 mmol/L (3.5-5.1); Protein, Total 6.5 g/dL (6.4-8.2); Sodium Level 140 mmol/L (136-145); Triglycerides 134 mg/dL; Very Low Density Lipoprotein 27 mg/dL (5-40)
[2019-07-21] MEDS: Aspirin E.C. 81 MG Tablet PO (08:10)
[2019-07-21 08:21] LABS: Bedside Glucose 89 mg/dL (70-110)
--- NOTE | 2019-07-21 08:40 | PCM.PN.CARD ---
Subjectve: Patient doing very well this morning and feels much better. She noticed immediate relief. Her right groin is clean/dry/intact. Telemetry negative. EKG shows normal sinus rhythm, no acute changes. Objective: Vital Signs Temp Pulse Resp BP Pulse Ox 97.8 F 70 17 153/54 H 97 07/21/19 08:00 07/21/19 08:00 07/21/19 08:00 07/21/19 08:00 07/21/19 08:00 Oxygen Flow Rate (L/min) 2 Oxygen Delivery Method Room Air Weight: 157 lb 13.616 oz Body Mass Index (BMI) 31.7 Intake and Output for Last 24 Hours 07/19/19 07/20/19 07/21/19 23:59 23:59 23:59 Intake Total 1460 / 1700 360 / 360 Output Total 700 / 700 Balance 760 / 1000 360 / 360 General: Awake, Alert, Oriented x 3 HEENT: PERRL, EOMI, Sclera Non Icteric Neck: Supple, Good ROM, No Lymph Node Enlargement Lungs: Clear to auscultation Cardiovascular: Regular Rhythm, Normal S1, Normal S2, No Murmurs, No Rubs, No Gallops Vascular: No Carotid Bruits, Normal Femoral Pulses, Normal Radial Pulses, Normal Dorsalis Pedal Pulse, Normal Posterior Tibial Pulses Abdomen: Bowel Sounds Present, Soft, Non Tender, No HSM, No Organomegaly Extremities: No Cyanosis, No Clubbing, No edema Neurological: No Focal Motor or Sensory Deficit 07/21/19 05:00: WBC 8.6, RBC 4.38, Hgb 12.9, Hct 39.8, MCV 90.9, MCH 29.5, MCHC 32.4, Plt Count 287, MPV 9.2 07/21/19 05:00: Sodium 140, Potassium 3.8, Chloride 106, Carbon Dioxide 28.0, Anion Gap 6, BUN 12, Creatinine 0.84, Est GFR (MDRD) Af Amer 86, Est GFR (MDRD) Non-Af 71, BUN/Creatinine Ratio 14.3, Glucose 96, Calcium 8.8, Total Bilirubin 0.70, Triglycerides 134, Cholesterol 153, LDL Cholesterol 91, VLDL Cholesterol 27, HDL Cholesterol 35 L Rhythm: EKG: ECHO: Stress Test: Cardiac Cath: PCI: CT Surgery: Holter monitor: EPS: PPM: CXR: Chest CT Scan: Medical Necessity - Tobacco Use Smoking Status: Never smoker Assessment/Plan 1. Coronary artery disease: Patient feels much better after angioplasty and stenting to her LAD. Her right groin is clean/dry/intact without evidence of thrills, bruits or hematoma. Her hemoglobin and creatinine are within nominal limits. Telemetry negative. I recommended she discharged on aspirin, Plavix, and her antihypertensive medications as outlined in the [facility]. She will be evaluated for cardiac rehab which may be of limited nature given her use of a cane. 2. Hyperlipidemia: Continue Lipitor and Zetia. 3. Patient will be discharged home and follow-up with Dr. Dhaliwal going forward. Code Visit Inpatient E&M: 73433 Subs Hosp L2
[2019-07-21] MEDS: Ezetimibe 10 MG Tablet PO (09:13)
[2019-07-21] MEDS: hydroCHLOROthiazide 12.5mg 12.5 MG PO (09:13)
[2019-07-21] MEDS: Escitalopram Oxalate 20 MG Tablet PO (09:13)
[2019-07-21] MEDS: Clopidogrel Bisulfate 75 MG Tablet PO (09:13)
[2019-07-21] MEDS: Lisinopril 20 MG Tablet PO (09:13)
[2019-07-21] MEDS: Metoprolol(XL)Succ 50 MG Tablet PO (09:13)
--- NOTE | 2019-07-21 11:30 | CASEMGMT ---
ZAKIA SESAY NOTE: Pt being discharged. ZAKIA SESAY to room to meet with pt. Pt states she lives alone in an apartment and that her daughter, Audrey lives close by--about 5 min away, and is supportive. She states she does not drive and either her daughter or friend provide transportation for her and she has no concerns. She uses either a cane or a walker to ambulate and denies needing any further DME. Pt has not completed AD paperwork. Provided with [employer] card and made aware she can make an appt as an out-pt for paperwork completion if she decides to in the future. Pt voices understanding. Pt denies having any concerns w/going home @ discharge. Ashley CRISTINA RN, CM
== END 2019-07-21 11:10 | disposition home or self-care (01) ==
LOC: CLSP 06:53 → ICU 07-21 07:22
PROVIDERS: PCP Physician Assistant; Referring Provider Internal Medicine Cardiovascular Disease; Visit Provider Internal Medicine Cardiovascular Disease
DX: I25.10 Atherosclerotic heart disease of native coronary artery without angina pectoris (principal); R94.39 Abnormal result of other cardiovascular function study; R00.2 Palpitations; I10 Essential (primary) hypertension; E78.5 Hyperlipidemia, unspecified; G47.33 Obstructive sleep apnea (adult) (pediatric); E11.9 Type 2 diabetes mellitus without complications; I69.349 Monoplegia of lower limb following cerebral infarction affecting unspecified side; Z79.02 Long term (current) use of antithrombotics/antiplatelets; Z79.4 Long term (current) use of insulin; Z79.82 Long term (current) use of aspirin; Z95.5 Presence of coronary angioplasty implant and graft; R60.0 Localized edema
CPT/HCPCS: 36415; 71046; 80048; 80053; 80061; 82962; 85027; 85347; 85610; 85730; 92928; 93005; 93458; 99152; 99153; C1760; J7030; J7040; Q9967; C1725; C1769; C1874; C1887; C1894; C9600

== ENCOUNTER → 2019-08-12 15:07 | Outpatient (CLI) | payer MEDICARE, MEDICAID, OTHER, SELFPAY ==
[2019-07-20 11:30] VITALS: BMI 30.6
[2019-08-12 14:41] VITALS: BMI 32.0
[2019-08-12 16:22] LABS: Absolute Neutrophil Count 4.3 X10^3/uL (2.0-7.7); Basophil# 0.07 X10^3/uL; Basophil% 0.9 % (0-1); Eosinophil# 0.49 X10^3/uL; Eosinophils% 6.1 % (0-5); Hematocrit 42.4 % (37-47); Hemoglobin 13.9 g/dL (12.0-15.0); Lymphocyte % 32.6 % (19-41); Mean Corp Hgb Conc 32.8 g/dL (32-36); Mean Corpuscular Volume 91.6 fL (81-99); Mean Platelet Vol. 9.4 fl (6.2-12.0); Monocyte% 6.3 % (0-10); NRBC Flagged by Analyzer 0 % (0-5); Neutrophil # 4.29 X10^3/uL (2.7-7.7); Neutrophil % 53.7 % (47-70); Platelet Count 331 K/mm3 (150-450); RBC Distribution Width CV 13.3 % (11.6-14.6); RBC Distribution Width SD 44.9 fl (35.1-43.9); Red Blood Count 4.63 M/mm3 (4.2-5.4)
[2019-08-12 16:57] LABS: Anion Gap 5 (5-15); BUN 15 mg/dL (7-18); BUN/Creat Ratio 14.4 RATIO (10-20); Calcium,Total 9.6 mg/dL (8.5-10.1); Chloride 104 mmol/L (98-107); Creatinine, Serum 1.04 mg/dL (0.55-1.02); EST Glomerular Filtration Rate 55 mL/min (>60); Est Glom Filt Rate - Afr Amer 67 mL/min (>60); Glucose 120 mg/dL (74-106); Magnesium 1.7 mg/dL (1.6-2.6); Potassium 4.1 mmol/L (3.5-5.1); Sodium Level 140 mmol/L (136-145); T4 Total, Thyroxin 9.4 ug/dL (4.8-13.9)
== END ==
PROVIDERS: PCP Physician Assistant; Referring Provider Internal Medicine Cardiovascular Disease; Visit Provider Internal Medicine Cardiovascular Disease
DX: R94.39 Abnormal result of other cardiovascular function study (principal); R00.2 Palpitations; I25.10 Atherosclerotic heart disease of native coronary artery without angina pectoris; Z98.890 Other specified postprocedural states
CPT/HCPCS: 36415; 80048; 83735; 84436; 84443; 85025

== ENCOUNTER → 2020-09-28 06:44 | Outpatient (CLI) | payer MEDICARE, OTHER, MEDICAID, SELFPAY ==
[2019-07-20 11:30] VITALS: BMI 30.6
[2020-09-13 11:36] VITALS: BMI 32.0
--- NOTE | 2020-09-28 11:48 | STRESSREP_ITS ---
Stress Test Report Date: 09/28/2020 Procedure: Pharmacologic stress nuclear imaging study Indications: Shortness of breath Consent: Per the patient Procedure: The patient underwent pharmacologic (Regadenoson) evaluation with a peak heart rate of 97 beats per minute (65%predicted maximal heart rate) and a peak blood pressure of 152/88 mmHg. The baseline ECG demonstrated normal sinus rhythm, poor R wave progression in the anterior leads, possible prior anterior AK. EKG during lexiscan infusion revealed no significant ischemic changes. EKG post infusion revealed no significant ischemic changes [There were no cardiac dysrhythmias pretest, during pharmacologic infusion, or recovery]. [There was no complaint of chest discomfort during pharmacologic infusion or recovery]. The examination was discontinued secondary to completion of protocol. Impression: 1. Lexiscan stress test test is negative for Lexiscan infusion induced EKG ch anges of ischemia. 2. Lexiscan stress test test is negative for Lexiscan infusion induced chest pain. 3. Results of the nuclear portion of the test is as below Myocardial perfusion imaging study: Technique: The patient was injected with 10.8 millicuries of technetium 99m Cardiolite and subsequently rest SPECT Cardiolite nuclear imaging was obtained in the horizontal long, vertical long, and short axis views. The patient underwent pharmacologic [Regadenoson 0.4mg] evaluation. Please see above for details. The patient was injected with 34.7 millicuries of technetium 99m Cardiolite and s ubsequently stress SPECT Cardiolite nuclear imaging was obtained in the horizontal long, vertical long, and short axis views. A gated Cardiolite study at peak stress was obtained. Interpretation: Rest and stress SPECT Cardiolite nuclear imaging status post realignment, normalization, and attenuation correction demonstrate normal myocardial radioisotope uptake. Gated images reveal no significant regional wall motion abnormalities. The reported LVEF is greater than 70%. Impression: 1. There is no evidence of significant ischemia or infarction. 2. Estimated ejection fraction is greater than 70%. This note was generated with [employer] software. It may contain incorrect words, spelling, and punctuation that were not noted in checking the note before signing.
== END ==
PROVIDERS: PCP Physician Assistant; Referring Provider Nurse Practitioner Family; Visit Provider Nurse Practitioner Family
DX: R06.02 Shortness of breath (principal); I25.10 Atherosclerotic heart disease of native coronary artery without angina pectoris; I10 Essential (primary) hypertension; E78.5 Hyperlipidemia, unspecified; Z95.5 Presence of coronary angioplasty implant and graft
CPT/HCPCS: 78452; 93017; A9500; A4216; J2785

== ENCOUNTER → 2021-03-27 12:17 | Outpatient (CLI) | payer MEDICARE, OTHER, MEDICAID, SELFPAY ==
[2019-07-20 11:30] VITALS: BMI 30.6
[2021-03-27 13:12] LABS: Absolute Lymphocyte Count 2.05 X10^3/uL (0.83-4.51); Basophil# 0.06 X10^3/uL; Basophil% 0.9 % (0-1); Eosinophil# 0.39 X10^3/uL; Eosinophils% 5.6 % (0-5); Hemoglobin 13.5 g/dL (12.0-15.0); Lymphocyte # 2.05 X10^3/ul (0.83-4.51); Lymphocyte % 29.6 % (19-41); Mean Corp Hgb Conc 32.9 g/dL (32-36); Mean Corpuscular Hgb 30.4 pg (27.0-32.0); Mean Corpuscular Volume 92.3 fL (81-99); Mean Platelet Vol. 9.3 fl (6.2-12.0); Monocyte# 0.42 X10^3/uL; Monocyte% 6.1 % (0-10); NRBC Flagged by Analyzer 0 % (0-5); Neutrophil # 3.98 X10^3/uL (2.7-7.7); Neutrophil % 57.4 % (47-70); Platelet Count 337 K/mm3 (150-450); RBC Distribution Width CV 13.1 % (11.6-14.6); RBC Distribution Width SD 44.5 fl (35.1-43.9); Red Blood Count 4.44 M/mm3 (4.2-5.4); White Blood Count 6.9 K/mm3 (4.4-11.0)
[2021-03-27 13:48] LABS: Anion Gap 5 (5-15); BUN 16 mg/dL (7-18); Calcium,Total 9.5 mg/dL (8.5-10.1); Chloride 103 mmol/L (98-107); Creatinine, Serum 1.07 mg/dL (0.55-1.02); EST Glomerular Filtration Rate 53 mL/min (>60); Est Glom Filt Rate - Afr Amer 65 mL/min (>60); Glucose 111 mg/dL (74-106); Potassium 3.7 mmol/L (3.5-5.1); Sodium Level 138 mmol/L (136-145)
[2021-03-27 13:49] LABS: BNP,B-Type NATRIURETIC PEPTIDE 15.3 pg/mL (0-100)
== END ==
PROVIDERS: PCP Physician Assistant; Referring Provider Nurse Practitioner Gerontology; Visit Provider Nurse Practitioner Gerontology
DX: I25.5 Ischemic cardiomyopathy (principal); I25.10 Atherosclerotic heart disease of native coronary artery without angina pectoris; I10 Essential (primary) hypertension; E78.5 Hyperlipidemia, unspecified; R06.00 Dyspnea, unspecified; Z95.5 Presence of coronary angioplasty implant and graft
CPT/HCPCS: 36415; 80048; 83880; 85025

== ENCOUNTER → 2021-04-02 10:27 | Outpatient (CLI) | payer MEDICARE, OTHER, MEDICAID, SELFPAY ==
[2019-07-20 11:30] VITALS: BMI 30.6
--- NOTE | 2021-04-03 08:32 | PFTCOMP ---
COMPLETE PULMONARY FUNCTION TEST INTERPRETATION Brief HPI: Patient is a 75 year old female, currently under the care of Matilda Uriostegui, who presents to [facility] for complete pulmonary function tests secondary to diagnosis of dyspnea. Respiratory therapist reports good effort and reproducible results. Interpretation: Forced expiration spirometry shows no large airways obstructive ventilatory defect with an FEV1 of 103% predicted. There is no significant bronchodilator response by strict ATS criteria. Spirograms are of good quality and plateau normally. The respiratory flow volume loop shows a normal pattern. Lung volumes by body plethysmography show a normal total lung capacity at 3.21, 81% predicted. All other lung volumes are reduced symmetrically. Diffusion capacity by carbon monoxide is at the lower limit of normal at 58% predicted. The airway resistance is slightly elevated. No previous pulmonary function tests were available for review. Impression: Lung volumes and diffusing capacity are at the lower limit of normal, so early connective tissue disease versus CHF cannot be excluded. Consider chest imaging if not completed previously.
== END ==
PROVIDERS: PCP Physician Assistant; Referring Provider Nurse Practitioner Gerontology; Visit Provider Nurse Practitioner Gerontology
DX: R06.00 Dyspnea, unspecified (principal)
CPT/HCPCS: 94060; 94726; 94729

== ENCOUNTER → 2021-04-17 10:19 | Outpatient (CLI) | payer MEDICARE, OTHER, MEDICAID, SELFPAY ==
[2019-07-20 11:30] VITALS: BMI 30.6
--- NOTE | 2021-04-17 10:30 | RAD_ITS ---
STUDY: X-RAY CHEST REASON FOR EXAM: Female, 75 years old. CHEST PAIN Dyspnea on minimal exertion TECHNIQUE: XR Chest 2 Views COMPARISON: 07.18.19 FINDINGS: There is no demonstrated pleural abnormality. Normal size heart. Normal mediastinum and torey. Normal visualized pulmonary arteries. There is atherosclerotic calcification of the aortic arch with tortuosity. There are diffuse degenerative changes of the visualized thoracic spine. There is degenerative osteoarthritis of the bilateral shoulders. There is no demonstrated abnormality of the visualized soft tissue structures of the upper abdomen. RAD/Chest PA and Lateral IMPRESSION: There are no acute findings. Electronically Signed: Kev Johnson MD at 19:15 EST , Service support ,
== END ==
PROVIDERS: PCP Physician Assistant; Referring Provider Nurse Practitioner Gerontology; Visit Provider Nurse Practitioner Gerontology
DX: R06.00 Dyspnea, unspecified (principal)
CPT/HCPCS: 71046

== ENCOUNTER 2021-07-24 11:26 | Outpatient (CLI) | payer MEDICARE, OTHER, MEDICAID, SELFPAY ==
[2019-07-20 11:30] VITALS: BMI 30.6
[2021-07-24 12:14] LABS: Thyroid Stim Hormone (TSH) 2.03 uIU/mL (0.358-3.74)
== END 2021-07-24 23:59 | disposition home or self-care (01) ==
LOC: PAVLAB 11:29
PROVIDERS: PCP Physician Assistant; Referring Provider Internal Medicine Critical Care Medicine; Visit Provider Internal Medicine Critical Care Medicine
DX: E78.5 Hyperlipidemia, unspecified (principal)
CPT/HCPCS: 36415; 84443

== ENCOUNTER 2021-08-08 10:30 | Outpatient (CLI) | payer MEDICARE, OTHER, MEDICAID, SELFPAY ==
[2019-07-20 11:30] VITALS: BMI 30.6
[2021-08-08 11:35] VITALS: PULSE 72; PULSE 74; PULSE 79; PULSE 80; PULSE 81; PULSE 82; O2SAT 94; O2SAT 96; O2SAT 97; O2SAT 98; O2SAT 99
--- NOTE | 2021-08-08 15:51 | PCM.PSN.6M ---
PSN 6 Minute Walk Test 6 Minute Walk Test 6 Minute Walk Test: 6 Minute Walk Test PSN:6-Minute Walk Test Start: 08/08/21 11:22 Freq: Status: Active Protocol: [id number].6MINW Document 08/08/21 11:35 [facility] (Rec: 08/08/21 11:37 [facility] [id number]) 6 Minute Walk Test Date Performed 08/08/21 Time Performed 11:00 Height 5 ft Weight: 76.657 kg Weight in Pounds 169.[address]: Best Garcia Assistive device used: Cane 1st minute Oxygen Delivery Method Room Air Pulse Ox (%) 94 Pulse Rate (60-100 beats/min) 74 Dyspnea Bri Scale (0-10) 2 Number of Rests Taken 1 2nd minute Oxygen Delivery Method Room Air Pulse Ox (%) 96 Pulse Rate (60-100 beats/min) 82 Dyspnea Bri Scale (0-10) 3 Number of Rests Taken 1 Reported Symptoms Increased Work of Breathing 3rd minute Oxygen Delivery Method Room Air Pulse Ox (%) 98 Pulse Rate (60-100 beats/min) 80 Dyspnea Bri Scale (0-10) 3 Number of Rests Taken 0 Reported Symptoms Increased Work of Breathing 4th minute Oxygen Delivery Method Room Air Pulse Ox (%) 97 Pulse Rate (60-100 beats/min) 81 Dyspnea Bri Scale (0-10) 3 Number of Rests Taken 1 Reported Symptoms Increased Work of Breathing 5th minute Oxygen Delivery Method Room Air Pulse Ox (%) 98 Pulse Rate (60-100 beats/min) 79 Dyspnea Bri Scale (0-10) 3 Number of Rests Taken 0 Reported Symptoms Increased Work of Breathing 6th minute Oxygen Delivery Method Room Air Pulse Ox (%) 97 Pulse Rate (60-100 beats/min) 81 Dyspnea Bri Scale (0-10) 3 Number of Rests Taken 0 Reported Symptoms Increased Work of Breathing Post-test Oxygen Delivery Method Room Air Pulse Ox (%) 99 Pulse Rate (60-100 beats/min) 72 Dyspnea Bri Scale (0-10) 1 Full Laps Walked 9 Partial Lap, Number of Tiles Walked 22 Total Distance Walked (ft) 553 Interpretation Interpretation: The patient was able to ambulate 553 feet over the course of 6 minutes on room air with the assistance of a cane and 3 breaks. The patient experienced no significant desaturation or tachycardia. These findings are consistent with a musculoskeletal limitation exercise tolerance. Recommendations Recommendations: No supplemental oxygen is indicated at this time. Patient may require repeat testing if musculoskeletal performance improves.
== END 2021-08-08 23:59 | disposition home or self-care (01) ==
LOC: PSN 10:33
PROVIDERS: PCP Physician Assistant; Referring Provider Internal Medicine Critical Care Medicine; Visit Provider Internal Medicine Critical Care Medicine
DX: R06.02 Shortness of breath (principal)
CPT/HCPCS: 94618

== ENCOUNTER 2021-09-19 09:51 | Outpatient (CLI) | payer MEDICARE, OTHER, MEDICAID, SELFPAY ==
[2019-07-20 11:30] VITALS: BMI 30.6
--- NOTE | 2021-09-19 09:58 | VDLE_ITS ---
Reason For Study: Leg pain/swelling, DVT RIGHT LEFT GSV is normal. GSV is normal. CFV is compressible, spontaneous, phasic, CFV is compressible, spontaneous, phasic, competent and demonstrates normal competent, and demonstrates normal augmentation. augmentation. FV is compressible, spontaneous, phasic, FV is partially compressible with venous flow competent and demonstrates normal noted. augmentation. POP V is compressible, spontaneous, phasic, POP V is compressible, spontaneous, phasic, competent and demonstrates normal competent and demonstrates normal augmentation. augmentation. T/P Trunk is compressible. T/P Trunk is compressible. PTV is compressible. PTV is compressible. LT PerV is compressible. RT PerV is compressible. Procedure This is a venous duplex using B-mode, color flow and spectral Doppler. Exam performed in department. VL/Venous Duplex US - Pawel Extrem Interpretation Summary Right lower extremity with no evidence of DVT noted. 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 Ordering Physician: Alberto Rosario Referring Physician: Philomena Gamez Performed By: Payal West RVT
== END 2021-09-19 23:59 | disposition home or self-care (01) ==
PROVIDERS: PCP Physician Assistant; Referring Provider Surgery Vascular Surgery; Visit Provider Surgery Vascular Surgery
DX: I82.90 Acute embolism and thrombosis of unspecified vein (principal); E10.9 Type 1 diabetes mellitus without complications; M21.371 Foot drop, right foot; M21.372 Foot drop, left foot; I10 Essential (primary) hypertension; E78.00 Pure hypercholesterolemia, unspecified; Z86.718 Personal history of other venous thrombosis and embolism
CPT/HCPCS: 93970

== ENCOUNTER → 2021-12-24 | Outpatient (CLI) | payer MEDICARE, OTHER, MEDICAID, SELFPAY ==
[2019-07-20 11:30] VITALS: BMI 30.6
--- NOTE | 2021-12-24 08:53 | STRESSREP_ITS ---
Stress Test Report Date: 12-24-2021 Procedure: Pharmacologic stress nuclear imaging study Indications: Chest pain; CAD; PCI; atrial dysrhythmia Consent: Per the patient Procedure: The patient underwent pharmacologic (Regadenoson 0.4mg ) evaluation with a peak heart rate of 86 beats per minute (58%predicted maximal heart rate) and a peak blood pressure of 170/82 mmHg. The baseline ECG demonstrated normal sinus rhythm; poor R wave progression; nonspecific T wave abnormality. The peak pharmacologic ECG demonstrated no obvious ECG changes. There were no cardiac dysrhythmias pretest, during pharmacologic infusion, or recovery. There was no complaint of chest discomfort during pharmacologic infusion or recovery. The examination was discontinued secondary to completion of protocol. Impression: 1. Pharmacologic (Regadenoson) evaluation 2. Peak pharmacologic ECG with no obvious ECG changes. 3. There were no cardiac dysrhythmias pretest, during pharmacologic infusion, or recovery. 4. Nuclear images pending Myocardial perfusion imaging study: Technique: The patient was injected with 14.3 millicuries of technetium 99m Cardiolite and subsequently rest SPECT Cardiolite nuclear imaging was obtained in the horizontal long, vertical long, and short axis views. The patient underwent pharmacologic (Regadenoson) evaluation with a peak heart rate of 86 beats per minute (58% percent predicted maximal heart rate) and a peak blood pressure of 170/82 mmHg. The patient was injected with 44.6 millicuries of technetium 99m Cardiolite and subsequently stress SPECT Cardiolite nuclear imaging was obtained in the horizontal long, vertical long, and short axis views. A gated Cardiolite study at peak stress was obtained. Interpretation: Rest and stress SPECT Cardiolite nuclear imaging status post realignment, normalization, and attenuation correction demonstrate relative uniform tracer uptake and myocardial perfusion appearing within normal limits. There is end systolic thickening and brightening. The gated Cardiolite study demonstrates myocardial thickening and inward wall motion. The reported LVEF is 92%. Impression: 1. Rest and stress SPECT Cardiolite nuclear imaging demonstrate relative uniform tracer uptake and myocardial perfusion appearing within normal limits. 2. The gated Cardiolite study reports an LVEF of 92%. This note was generated with [employer] software. It may contain incorrect words, spelling, and punctuation that were not noted in checking the note before signing.
== END | disposition home or self-care (01) ==
PROVIDERS: PCP Physician Assistant; Referring Provider Nurse Practitioner Gerontology; Visit Provider Nurse Practitioner Gerontology
DX: R07.9 Chest pain, unspecified (principal); R94.31 Abnormal electrocardiogram [ECG] [EKG]; Z95.5 Presence of coronary angioplasty implant and graft
CPT/HCPCS: 78452; 93017; A9500; A4216; J2785

== ENCOUNTER → 2021-12-26 | Outpatient (CLI) | payer MEDICARE, OTHER, MEDICAID, SELFPAY ==
[2019-07-20 11:30] VITALS: BMI 30.6
--- NOTE | 2021-12-26 09:50 | CDU_ITS ---
Reason For Study: dizziness Rt. Velocities/BP Lt. Velocities/BP Prox CCA 73.4/10.8 cm/sec. Prox CCA 70.2/8.8 cm/sec. Mid CCA 63.0/12.1 cm/sec. Mid CCA 63.6/13.5 cm/sec. Dist CCA 64.3/13.4 cm/sec. Dist CCA 74.9/13.5 cm/sec. Prox ICA 85.1/15.1 cm/sec. Prox ICA 88.8/12.6 cm/sec. Mid ICA 93.7/17.6 cm/sec. Mid ICA 67.9/16.3 cm/sec. Dist ICA 62.1/13.2 cm/sec. Dist ICA 59.3/13.9 cm/sec. Rt. ICA/CCA = 1.5. Lt. ICA/CCA = 1.4. Prox ECA 130.2/4.2 cm/sec. Prox ECA 126.6/7.9 cm/sec. Rt. Vert. 41.9/10.7 cm/sec. Lt. Vert. 44.7/10.7 cm/sec. Right Extracranial There is intimal thickening but no significant atherosclerotic plaque noted in the right common carotid artery. There is heterogeneous, irregular atherosclerotic plaque noted in the right internal carotid artery. There is heterogeneous, irregular atherosclerotic plaque noted in the right external carotid artery. Antegrade flow is noted in the right vertebral artery. Left Extracranial There is homogeneous, smooth atherosclerotic plaque noted in the left common carotid artery. There is heterogeneous, irregular atherosclerotic plaque noted in the left internal carotid artery. There is intimal thickening but no significant atherosclerotic plaque noted in the left external carotid artery. Antegrade flow is noted in the left vertebral artery. Procedure Carotid Duplex [id number]. This is a Carotid Duplex examination using B-mode, color flow and specral Doppler. The exam was diagnostic. Exam performed in department. VL/Carotid Duplex Ultrasound Interpretation Summary Irregular calcific plaque at the proximal right internal carotid artery with le ss than 50% stenosis Less than 50% stenosis right external carotid artery Irregular calcific plaque with shadowing at the proximal left internal carotid artery with less than 50% stenosis Less than 50% stenosis left external carotid artery Patent and antegrade vertebral arteries bilaterally No change from the previous examination of July 06, 2019 Ordering Physician: Matilda Uriostegui Performed By: Mike Fernández RVT
== END | disposition home or self-care (01) ==
LOC: CVS 09:49
PROVIDERS: PCP Physician Assistant; Referring Provider Nurse Practitioner Gerontology; Visit Provider Nurse Practitioner Gerontology
DX: R42 Dizziness and giddiness (principal)
CPT/HCPCS: 93880

== ENCOUNTER → 2023-02-17 | Outpatient (CLI) | payer MEDICARE, OTHER, MEDICAID, SELFPAY ==
[2019-07-20 11:30] VITALS: BMI 30.6
[2023-02-17 14:23] LABS: Absolute Lymphocyte Count 3.39 X10^3/uL (0.83-4.51); Absolute Neutrophil Count 5.6 X10^3/uL (2.0-7.7); Basophil# 0.06 X10^3/uL; Basophil% 0.6 % (0-1); Eosinophil# 0.45 X10^3/uL; Eosinophils% 4.4 % (0-5); Hematocrit 40.7 % (37-47); Hemoglobin 13.3 g/dL (12.0-15.0); Lymphocyte # 3.39 X10^3/ul (0.83-4.51); Lymphocyte % 33.5 % (19-41); Mean Corp Hgb Conc 32.7 g/dL (32-36); Mean Corpuscular Hgb 31.1 pg (27.0-32.0); Mean Corpuscular Volume 95.1 fL (81-99); Mean Platelet Vol. 9.3 fl (6.2-12.0); Monocyte% 5.9 % (0-10); NRBC Flagged by Analyzer 0 % (0-5); Neutrophil # 5.59 X10^3/uL (2.7-7.7); Neutrophil % 55.2 % (47-70); Platelet Count 373 K/mm3 (150-450); RBC Distribution Width CV 13.1 % (11.6-14.6); RBC Distribution Width SD 45.4 fl (35.1-43.9); Red Blood Count 4.28 M/mm3 (4.2-5.4); White Blood Count 10.1 K/mm3 (4.4-11.0)
[2023-02-17 14:49] LABS: BNP,B-Type NATRIURETIC PEPTIDE 27.9 pg/mL (0-100)
[2023-02-17 14:52] LABS: Anion Gap 4 (5-15); BUN 14 mg/dL (7-18); BUN/Creat Ratio 13.2 RATIO (10-20); Calcium,Total 9.4 mg/dL (8.5-10.1); Chloride 103 mmol/L (98-107); Creatinine, Serum 1.06 mg/dL (0.55-1.02); EST Glomerular Filtration Rate 54 mL/min (>60); Est Glom Filt Rate - Afr Amer 65 mL/min (>60); Glucose 172 mg/dL (74-106); Sodium Level 136 mmol/L (136-145)
== END | disposition home or self-care (01) ==
PROVIDERS: PCP Internal Medicine; Referring Provider Nurse Practitioner Gerontology; Visit Provider Nurse Practitioner Gerontology
DX: R06.00 Dyspnea, unspecified (principal); R42 Dizziness and giddiness; R07.89 Other chest pain
CPT/HCPCS: 36415; 80048; 83880; 85025

== ENCOUNTER → 2023-03-05 | Outpatient (CLI) | payer MEDICARE, OTHER, MEDICAID, SELFPAY ==
[2019-07-20 11:30] VITALS: BMI 30.6
--- NOTE | 2023-03-05 06:56 | ECHOCS_ITS ---
Version 2 Reason For Study: Chest Pain Procedure This was a 2D Doppler, Color Flow transthoracic echocardiogram. The study was technically difficult. Contrast injection was performed. Exam performed in department. Left Ventricle Normal LV size. Left ventricular systolic function is normal. The estimated ejection fraction is 65 %. Stage 1 diastolic dysfunction. No regional wall motion abnormalities noted. Right Ventricle Normal RV size. Normal systolic function. Atria Normal left atrium. Normal right atrium. Mitral Valve Normal mitral valve. Tricuspid Valve Normal tricuspid valve. Mild tricuspid valve insufficiency. Pulmonary artery systolic pressure is 33 mmHg. Aortic Valve Normal aortic valve. Trisinus/trileaflet aortic valve. Pulmonic Valve Normal pulmonic valve. Normal pulmonic valve velocity. Great Vessels Normal aortic root. The pulmonary artery is normal size. Normal inferior vena cava. Pericardium/Pleural No pericardial effusion. Medication 22 gauge I.V. with prn adaptor inserted into right arm. Diluted definity 3ml given slow IV push to enhance endocardial definition. MMode/2D Measurements & Calculations LVIDd: 5.0 cm IVSd: 0.78 cm Ao root diam: 3.0 cm LVIDs: 3.4 cm LVPWd: 0.79 cm LA dimension: 3.8 cm RVDd: 3.2 cm FS: 30.8 % LAV(MOD-bp): 33.4 ml LVAd ap4: 24.8 cm2 SV(MOD-sp4): 58.8 ml LAV(MOD-bp) Indexed: 20.0 ml/m2 LVLd ap4: 6.1 cm LAV(MOD-sp2): 23.3 ml EDV(MOD-sp4): 82.2 ml LAV(MOD-sp4): 39.3 ml EDV(sp4-el): 85.6 ml LVAs ap4: 11.3 cm2 LVLs ap4: 4.5 cm ESV(MOD-sp4): 23.3 ml ESV(sp4-el): 24.0 ml EF(MOD-sp4): 71.6 % EF(sp4-el): 72.0 % SV(sp4-el): 61.6 ml LA A4 area: 16.4 cm2 RA A4 area: 9.6 cm2 TAPSE: 1.3 cm Time Measurements MV dec time: 0.31 sec Doppler Measurements & Calculations MV E max [place]: 76.4 cm/sec Lat Peak E' [place]: 5.3 cm/sec Med Peak E' [place]: 6.9 cm/sec MV A max [place]: 109.5 cm/sec E/E' lat: 14.5 E/E' med: 11.0 MV E/A: 0.70 MV V2 max: 116.3 cm/sec MV P1/2t max [place]: 91.8 cm/sec Ao V2 max: 173.9 cm/sec MV max P.4 mmHg MV P1/2t: 123.4 msec Ao max P.1 mmHg MV V2 mean: 59.9 cm/sec Ao V2 mean: 119.4 cm/sec MV mean P.7 mmHg MV dec slope: 217.9 cm/sec2 Ao mean P.5 mmHg MV V2 VTI: 36.9 cm MVA(P1/2t): 1.8 cm2 Ao V2 VTI: 43.8 cm AV (velocity ratio): 0.69 LV V1 max: 120.2 cm/sec PA V2 max: 87.6 cm/sec TR max [place]: 266.7 cm/sec LV V1 max P.8 mmHg TR max P.5 mmHg LV V1 mean P.1 mmHg LV V1 mean: 81.8 cm/sec LV V1 VTI: 30.2 cm ECHO/Echo Complete W/ Contrast Interpretation Summary Normal LV size. Left ventricular systolic function is normal. The estimated ejection fraction is 65 %. Stage 1 diastolic dysfunction. Contrast injection was performed. Ordering Physician: Matilda Uriostegui Referring Physician: Matilda Uriostegui Performed By: Mart Ordoñez RCS
--- NOTE | 2023-03-05 14:32 | STRESSREP ---
Stress Test Report Date: 03/05/2023 Procedure: Pharmacologic stress nuclear imaging study Indications: Dyspnea Consent: Per the patient Procedure: The patient underwent pharmacologic (Regadenoson 0.4mg ) evaluation with a peak heart rate of 73 beats per minute (50%predicted maximal heart rate) and a peak blood pressure of 172/60 mmHg. The baseline ECG demonstrated sinus rhythm with nonspecific T wave changes. The peak pharmacologic ECG demonstrated no diagnostic ischemic changes. There were no cardiac dysrhythmias pretest, during pharmacologic infusion, or recovery. There was no complaint of chest discomfort during pharmacologic infusion or recovery. The patient was injected with 14.1 millicuries of technetium 99m Cardiolite and subsequently rest SPECT Cardiolite nuclear imaging was obtained in the horizontal long, vertical long, and short axis views. The patient underwent pharmacologic (Regadenoson) evaluation. The patient was injected with 44.3 millicuries of technetium 99m Cardiolite and subsequently stress SPECT Cardiolite nuclear imaging was obtained in the horizontal long, vertical long, and short axis views. A gated Cardiolite study at peak stress was obtained. The examination was stopped secondary to completion of protocol. Rest and stress SPECT Cardiolite nuclear imaging status post realignment, normalization, and attenuation correction demonstrate small apical defect at rest which appears better on stress images. Likely artifact. There is end systolic thickening and brightening. The gated Cardiolite study demonstrates myocardial thickening and inward wall motion. The reported LVEF is 80%. Impression: 1. Pharmacologic (Regadenoson) evaluation 2. Peak pharmacologic ECG with no ischemic changes. 3. There were no cardiac dysrhythmias pretest, during pharmacologic infusion, or recovery. 5. Rest and stress SPECT Cardiolite nuclear imaging demonstrate relative uniform tracer uptake and myocardial perfusion appearing within normal limits. 6. The gated Cardiolite study reports an LVEF of 80%. This note was generated with [employer] software. It may contain incorrect words, spelling, and punctuation that were not noted in checking the note before signing.
== END | disposition home or self-care (01) ==
LOC: CVS 06:54
PROVIDERS: PCP Internal Medicine; Referring Provider Nurse Practitioner Gerontology; Visit Provider Nurse Practitioner Gerontology
DX: R07.89 Other chest pain (principal); I25.10 Atherosclerotic heart disease of native coronary artery without angina pectoris; Z95.5 Presence of coronary angioplasty implant and graft; R42 Dizziness and giddiness
CPT/HCPCS: 78452; 93017; 93306; A9500; Q9957; A4216; C8929; J2785

== ENCOUNTER → 2023-06-15 | Outpatient (CLI) | payer MEDICARE, OTHER, MEDICAID, SELFPAY ==
[2019-07-20 11:30] VITALS: BMI 30.6
[2023-06-15 13:52] LABS: Absolute Lymphocyte Count 3.54 X10^3/uL (0.83-4.51); Absolute Neutrophil Count 4.7 X10^3/uL (2.0-7.7); Basophil# 0.07 X10^3/uL; Basophil% 0.7 % (0-1); Eosinophil# 0.35 X10^3/uL; Eosinophils% 3.7 % (0-5); Hematocrit 39.5 % (37-47); Hemoglobin 13.1 g/dL (12.0-15.0); Lymphocyte # 3.54 X10^3/ul (0.83-4.51); Lymphocyte % 37.9 % (19-41); Mean Corp Hgb Conc 33.2 g/dL (32-36); Mean Corpuscular Volume 93.6 fL (81-99); Mean Platelet Vol. 9.2 fl (6.2-12.0); Monocyte# 0.68 X10^3/uL; Monocyte% 7.3 % (0-10); NRBC Flagged by Analyzer 0 % (0-5); Neutrophil # 4.69 X10^3/uL (2.7-7.7); Neutrophil % 50.3 % (47-70); Platelet Count 343 K/mm3 (150-450); RBC Distribution Width CV 13.3 % (11.6-14.6); RBC Distribution Width SD 45.4 fl (35.1-43.9); Red Blood Count 4.22 M/mm3 (4.2-5.4); White Blood Count 9.3 K/mm3 (4.4-11.0)
[2023-06-15 14:16] LABS: Anion Gap 6 (5-15); BUN 24 mg/dL (7-18); BUN/Creat Ratio 22.6 RATIO (10-20); Calcium,Total 9.2 mg/dL (8.5-10.1); Chloride 105 mmol/L (98-107); Creatinine, Serum 1.06 mg/dL (0.55-1.02); EST Glomerular Filtration Rate 54 mL/min (>60); Est Glom Filt Rate - Afr Amer 65 mL/min (>60); Glucose 124 mg/dL (74-106); Potassium 4.5 mmol/L (3.5-5.1); Sodium Level 137 mmol/L (136-145)
[2023-06-15 14:18] LABS: BNP,B-Type NATRIURETIC PEPTIDE 10.7 pg/mL (0-100)
--- OUTSIDE RECORDS SUMMARY | 2023-06-15 14:21 | XMS RPT_ITS | CCD ---
Author Name Unknown Address [address] [place] [address] Organization [facility] Care Team Providers Care Language Arts Teacher Name Role Phone FERDINAND COYNE Primary Care Physician Adal HAIR, Lucinda Unavailable Unavailable JASMIN MAX, STEWART WU Consulting U navailable FERDINAND COYNE Primary Care Unavailable AMY MAX, RIGO Admitting UnavailCATRACHO Guzman MD Attending Unavailable FERDINAND COYNE Primary Care Unavailable RIGO REYES MD Admitting Unavailkaterina REYES MD, RIGO Attending UnavailJUAREZ Hawk MD Attending Unavailable HERMILA FERDINAND J Consulting Unavailable JUAREZ SWANSON MD Admitting Unavailable JUAREZ SWANSON MD Primary Care Unavailable PROVIDER, UNKNOWN Consulting Unavailable EVANGELINA WALDROP MD Primary Care Unavailable EVANGELINA WALDROP MD Attending Unavailable EVANGELINA WALDROP MD Admitting Unavailable CLEANING, FERDINAND J Consulting Unavailable CLEANING, FERDINAND J Referring Unavailable PROVIDER, UNKNOWN Consulting Unavailable KIMBERLEY LUCIO Primary Care Unavailable KIMBERLEY LUCIO Attending Unavailable CLEANING, FERDINAND J Referring Unavailable CLEANING, FERDINAND J Consulting Unavailable KIMBERLEY LUCIO Admitting Unavailable PROVIDER, UNKNOWN Consulting Unavailable NANCY COSTELLO MD Primary Care Unavailable NANCY COSTELLO MD Attending Unavailable NANCY COSTELLO MD Admitting Unavailable CLEANING, FERDINAND J Consulting Unavailable CLEANING, FERDINAND J Referring Unavailable PROVIDER, UNKNOWN Consulting Unavailable JORGE SLOAN MD Primary Care Unavailable JORGE SLOAN MD Attending Unavailable JORGE SLOAN MD Admitting Unavailable CLEANING, FERDINAND J Referring Unavailable CLEANING, FERDINAND J Consulting Unavailable PROVIDER, UNKNOWN Consulting Unavailable JUAREZ SWANSON MD Attending Unavailable JUAREZ SWANSON MD Admitting Unavailable LATJUAREZ LLAMAS MD Primary Care Unavailable [facility], JUAREZ MAX Attending Unavailable [facility] Admitting Unavailable KIKI, JUAREZ MAX Primary Care Unavailable [facility], LEXIS Gallego Primary Care Unavailable [facility], [place] Gallego Attending Unavailable JAHAMIDA, [place]IS F Admitting Unavailable LATMURIEL, JUAREZ MAX Admitting Unavailable KIKI, JUAREZ MAX Primary Care Unavailable [facility], JUAREZ MAX Attending Unavailable [facility], [place] Gallego Primary Care Unavailable [facility], [place] Gallego Attending Unavailable [facility], [place] F Admitting Unavailable [facility] Admitting Unavailable [facility] Primary Care Unavailable [facility] JU[facility] MAX Attending Unavailable Medications Current Medications Medication Drug Class(es) Dates Sig (Normalized) Sig (Original) atorvastatin 20 mg oral tablet (1 source) HMG-CoA Reductase Inhibitor Start: 03-14-2014 atorvastatin 20 mg oral tablet Dose : 20 mg = 1 tab(s), Oral, Daily, # 30 tab(s), 6 Refill(s) Start Date: 03/14/14 Status: Ordered Calcium (1 source) Phosphate Binder, Calcium Start: 03-13-2014 take 1 tablet by mouth once daily Calcium 600+D Dose = 1 tab(s), Oral, Daily, 0 Refill(s) Start Date: 03/13/14 Status: Ordered cloNIDine hydrochloride 0.1 mg oral tablet (1 source) Central alpha-2 Adrenergic Agonist Start: 04-10-2020 cloNIDine 0.1 mg oral tablet Dose : 0.1 mg = 1 tab(s), Oral, BID, # 180 tab(s), 0 Refill(s) Start Date: 04/10/20 Status: Ordered clopidogrel 75 mg oral tablet (1 source) P2Y12 Platelet Inhibitor Start: 04-11-2020 clopidogrel 75 mg oral tablet Dose : 75 mg = 1 tab(s), Oral, qDay, # 30 tab(s), 0 Refill(s), Pharmacy: [id number], 149.9, cm, 04/11/20 10:55:00 EST, Height, kg, 04/11/20 10:55:00 EST, Dosing Weight Start Date: 04/11/20 Status: Ordered famotidine 20 mg oral tablet (1 source) Histamine-2 Receptor Antagonist Start: 04-10-2020 famotidine 20 mg oral tablet Dose : 20 mg = 1 tab(s), Oral, qDay, # 30 tab(s), 0 Refill(s) Start Date: 04/10/20 Status: Ordered fluticasone propionate 0.05 mg/actuat metered dose nasal spray (1 source) Corticosteroid Start: 04-10-2020 take 1 dose nasal route twice daily fluticasone proprionate NASAL 50 mcg/ spray Dose = 1 spray(s), Nostril, each, BID, 0 Refill(s) Start Date: 04/10/20 Status: Ordered glipiZIDE 5 mg oral tablet (1 source) Sulfonylurea Start: 03-13-2014 glipiZIDE 5 mg oral tablet Dose : 5 mg = 1 tab(s), Oral, BIDAC, 0 Refill(s) Start Date: 03/13/14 Status: Ordered lisinopril 20 mg oral tablet (1 source) Angiotensin Converting Enzyme Inhibitor Start: 03-13-2014 lisinopril 20 mg oral tablet Dose : 20 mg = 1 tab(s), Oral, Daily, 0 Refill(s) Start Date: 03/13/14 Status: Ordered meclizine hydrochloride 12.5 mg oral tablet (1 source) Antiemetic Start: 02-16-2022 End: 02-23-2022 meclizine 12.5 mg oral tablet Dose : 12.5 mg = 1 tab(s), Oral, TID, PRN Dizziness, X 7 day(s), # 21 tab(s), 0 Refill(s), 02/23/22 13:36:00 EDT, Pharmacy: [id number], 152.4, cm, 02/16/22 5:40:00 EDT, Height Start Date: 02/16/22 Stop Date: 02/23/22 Status: Ordered sertraline 50 mg oral tablet (1 source) Serotonin Reuptake Inhibitor Start: 03-13-2014 sertraline 50 mg oral tablet Dose : 50 mg = 1 tab(s), Oral, Daily, 0 Refill(s) Start Date: 03/13/14 Status: Ordered Completed/Discontinued Medications Medication Drug Class(es) Dates Sig (Normalized) Sig (Original) apixaban 5 mg oral tablet (1 source) Factor Xa Inhibitor Start: 02-16-2022 Eliquis 5 mg oral tablet Dose : 5 mg = 1 tab(s), Oral, BID, 0 Refill(s), 78 Start Date: 02/16/22 Status: Ordered 0.5 ml dulaglutide 3 mg/ml auto-injector (1 source) GLP-1 Receptor Agonist Start: 04-10-2020 Trulicity Pen 1.5 mg/0.5 mL subcutaneous solution Dose : 1.5 mg = 0.5 mL, Subcutaneous, qWeek, 0 Refill(s), 0.5 mL/Pen Start Date: 04/10/20 Status: Ordered 24 hr metoprolol succinate 50 mg extended release oral tablet (2 sources) beta-Adrenergic Esther Start: 02-16-2022 End: 02-16-2022 metoprolol succinate 50 mg oral TABLET extended release Start: 02/16/22 8:00:00 EDT, Dose = 50 mg, = 1 tab(s), Oral, 0, 02/16/22 6:04:00 EDT Start Date: 02/16/22 Stop Date: 02/16/22 Status: Completed Problems Problem Classification Problem Date Documented Da te Episodic/Chronic Coronary atherosclerosis and other heart disease (1 source) Coronary arteriosclerosis 03-13-2014 Chronic Diabetes mellitus without complication (5 sources) Diabetes mellitus; Translations: [Type 2 diabetes mellitus without complications] Onset: 3 03-13-2014 Chronic Disorders of lipid metabolism (1 source) Hyperlipidemia, unspecified; Translations: [Hyperlipidemia, unspecified] Onset: 3 Chronic Essential hypertension (1 source) Hypertensive disorder 03-13-2014 Chronic Other bone disease and musculoskeletal deformities (1 source) Other specified disorders of bone density and structure, unspecified site; Translations: [Other specified disorders of bone density and structure, unspecified site] Onset: 3 Episodic Other eye disorders (1 source) 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 Other gastrointestinal disorders (3 sources) Diarrhea, unspecified; Translations: [Diarrhea, unspecified] Onset: 3 Episodic Other nutritional; endocrine; and metabolic disorders (4 sources) Hypomagnesemia; Translations: [Hypomagnesemia] Onset: 3 Chronic Thyroid disorders (1 source) Hypothyroidism, unspecified; Translations: [Hypothyroidism, unspecified] Onset: 3 Chronic Results Test Name Value Interpretation Reference Range Facil ity Vital Signs Date Time Vital Sign Value Performing Clinician Zayra gilliam 02-16-2022 10:32-0400 Body temperature 97.34 [degF] RIGO REYES MD [facility] 02-16-2022 10:32-0400 Diastolic blood pressure 48 mm[Hg] RIGO REYES MD [address] [place] [address] 02-16-2022 10:32-0400 Heart rate 48 /min RIGO REYES MD [address] [place] [address] 02-16-2022 10:32-0400 Respiratory rate 18 /min RIGO REYES MD [address] [place] [address] 02-16-2022 10:32-0400 Systolic blood pressure 118 mm[Hg] RIGO REYES MD [facility] 02-16-2022 08:23-0400 Heart rate 54 /min RIGO REYES MD [address] [place] [address] 02-16-2022 07:30-0400 Body temperature 97.16 [degF] RIGO REYES MD [facility] 02-16-2022 07:30-0400 Diastolic blood pressure 64 mm[Hg] RIGO REYES MD [facility] 02-16-2022 07:30-0400 Heart rate 52 /min RIGO REYES MD [facility] 02-16-2022 07:30-0400 Mean blood pressure 95 mm[Hg] RIGO REYES MD [facility] 02-16-2022 07:30-0400 Respiratory rate 18 /min RIGO REYES MD [facility] 02-16-2022 07:30-0400 Systolic blood pressure 157 mm[Hg] RIGO REYES MD [address] [place] [address] 02-16-2022 05:40-0400 Body height 152.4 cm RIGO REYES MD [address] [place] [address] 02-16-2022 05:40-0400 Body weight 78 kg RIGO REYES MD [address] [place] [address] 02-16-2022 05:40-0400 Body weight 33.58 kg/m2 RIGO REYES MD [address] [place] [address] 02-16-2022 05:37-0400 Body temperature 100.04 [degF] RIGO REYES MD [address] [place] [address] 02-16-2022 05:37-0400 Diastolic blood pressure 72 mm[Hg] RIGO REYES MD [address] [place] [address] 02-16-2022 05:37-0400 Heart rate 52 /min RIGO REYES MD [address] 02-16-2022 05:37-0400 Mean blood pressure 102 mm[Hg] RIGO REYES MD [address] [place] [address] 02-16-2022 05:37-0400 Respiratory rate 18 /min RIGO REYES MD [address] [place] [address] 02-16-2022 05:37-0400 Systolic blood pressure 163 mm[Hg] RIGO REYES MD [address] [place] [address] Encounters Encounter Date Encounter Type Care Provider Facility Start: 05-15-2023 End: 05-15-2023 ambulatory [place] [facility] Start: 05-15-2023 End: 05-15-2023 ambulatory JUAREZ MAX [facility] Start: 03-09-2023 End: 03-09-2023 [facility] Start: 02-18-2023 End: 02-18-2023 ambulatory JUAREZ MAX [facility] Start: 11-14-2022 End: 11-14-2022 ambulatory JUAREZ MAX [facility] Start: 10-25-2022 End: 10-25-2022 ambulatory JUAREZ MAX [facility] Start: 08-19-2022 End: 08-19-2022 Emergency department patient visit NANCY MAX [facility] Start: 08-11-2022 End: 08-12-2022 ambulatory EVANGELINA WALDROP [facility] Start: 06-28-2022 End: 06-29-2022 [facility]: 06-23-2022 End: 06-23-2022 Emergency department patient visit KIMBERLEY LUCIO [facility] Start: 02-17-2022 ambulatory FERDINAND Enrique ity:A Start: 02-16-2022 End: 02-16-2022 ambulatory STEWART CASTELLANOS MD Facility:A Start: 02-16-2022 End: 02-16-2022 Observation RIGO REYES MD [facility] Procedures Date Procedure Procedure Detail Performing Clinician Start: 08-12-2022 Urinalysis JUAREZ LLAMAS Payers Date Payer Category Payer Medicaid [id number] 2022 Medicare [id number] 2022 Private Health Insurance [id number] 2013 Medicare [id number] 1945 Unknown [id number] 2.16.8 [id number] 1945 Unknown [id number] 2.16.8 [id number] 1945 Unknown [id number] 2.16.8 [id number] 1945 Unknown [id number] 2.16.8 [id number] 1945 Unknown [id number] 2.16.8 [id number] 1945 Unknown [id number] 2.16.8 [id number] 1945 Unknown [id number] 2.16.8 [id number] 1947 Unknown [id number] 2.16.84 [id number] 1945 Unknown [id number] 2.16.84 0.1.723458.3.579.2.651 1945 Unknown [id number] 2.16.84 0.1.132819.3.579.2.651 1945 Unknown [id number] 2.16.84 0.1.625110.3.579.2.651 1947 Unknown [id number] 2.16.84 0.1.951998.3.579.2.651 1945 Unknown [id number] 2.16.84 [id number] Social History Date Type Detail Facility Tobacco smoking status Never smo ked tobacco (finding) [facility] Sex Assigned At Female [facility] Functional Status Date Assessment Result Facility 02-16-2022 Functional Status Done [facility] 02-16-2022 Functional Status [facility] 02-16-2022 Functional Status Lives in a [address] [place] [id number] [facility] 02-16-2022 Functional Status COVID 19 Surge in Effec t Yes [facility] 02-16-2022 Functional Status [facility] Mental Status Date Assessment Result Facility 02-16-2022 Mental Status Orientation Assessment Orie nted x 4 [facility] 02-16-2022 Mental Status [facility] 02-16-2022 Mental Status Orientation Oriented x 4 [facility] 02-16-2022 Mental Status [facility] Clinical Notes 03-01-2020 to 08-21-2022 Note Date & Type Note Facility 08-21-2022 Note [facility] HISTORY & PHYSICAL/DISCHARGE SUMMARY NAME ACCOUNT SEX AGE ADMIT DISCHARGE PT MED. RECORD# NUMBER DATE DATE TYPE ROSIE GILBERT [id number] F 77 08/11/22 08/12/22 2 [id number] ROOM: 309DC DATE OF : 49 DICTATING PHYSICIAN: Evangelina Waldrop CHIEF COMPLAINT: Weakness and change in speech. HISTORY OF PRESENT ILLNESS: This is a 77-year-old female with multiple chronic medical problems. She had recent COVID-19. She also has a history of diabetes, anxiety, depression, and a CVA initially one that was ocular manifestation and then one that left her some left-sided weakness. She was placed on Eliquis. She states she takes her medications; however, we did have a list, but she did not know what she states. She states they are set up by a home health nurse. She came to the emergency room when she started to notice some visual changes in her left eye and then her vision returned. She noticed her speech was not right. She went and saw her primary care physician. She had an elevated blood pressure. She stated it was 179/102, and she came to the emergency room to rule out stroke. In the emergency room, initial workup included a CT of the head. They did consult Tele Neurology. CT angiogram was completed, which showed the ground-glass area secondary to the COVID-19. She had no notable weakness or garbled speech, and Tele Neurologist recommended she stay overnight on telemetry with workup including MRI of the brain and echocardiogram. She was admitted for observation status. Upon evaluation this morning, she is back to her baseline. She states if she takes her medications on a routine basis she does not know what they are. Pharmacy checked the last time she filled Eliquis, and it was June 17 for a 30 day supply. She is unaware whether she was using samples or not. PAST MEDICAL HISTORY: (1) Lacunar infarct. She states she has some left-sided weakness. (2) Recent COVID-19. 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 (4) Diabetes mellitus type 2. (5) Anxiety. (6) Depression. (7) Hyperlipidemia. (8) Hypothyroidism. (9) Coronary artery disease. PAST SURGICAL HISTORY: (1) Tubal ligation. (2) Cholecystectomy. (3) Back surgery x3. (4) Foot surgery x2. (5) Cataract removal. (6) Two cardiac stents placed in July of 2021. MEDICATIONS: According to her med reconciliation: I cannot verify these with the patient as she does not know what her medicines are. On her list is albuterol 1 to 2 puffs every 4 to 6 hours p.r.n., amlodipine 5 mg daily, enteric-coated aspirin 81 mg daily, Clonidine 0.1 mg twice daily, vitamin D 125 mcg twice daily, Eliquis 5 mg twice daily, Zetia 10 mg daily, gabapentin 100 mg at bedtime, hydrochlorothiazide 25 mg daily, Lantus 35 units subcutaneous every night, Levothyroxine 25 mcg daily, Lexapro Page 1 of 4 ROSIE GILBERT History Physical/Discharge Summary ROSIE GILBERT :1945 10 mg daily, Lisinopril 20 mg daily, meclizine 12.5 mg 3 times daily p.r.n., metoprolol succinate 50 mg twice daily, pantoprazole 20 mg daily, rosuvastatin 40 mg daily, repaglinide 1 mg 3 times a day, Trulicity once per week. FAMILY HISTORY: Father with a lung condition. She did not know him most of her life. She does not know the details. Mother with CVA and myocardial infarction. SOCIAL HISTORY: The patient does not smoke nor drink alcohol. She is retired. REVIEW OF SYSTEMS: She denies any headache, acute visual changes. She did have some weakness and slurred speech. According to her records, she had some change in vision, which resolved on its own a few days prior to admission. No chest pain or shortness of breath. The rest of the review of systems were discussed and were negative. PHYSICAL EXAMINATION GENERAL APPEARANCE: The patient was sitting up in no acute distress. She was alert, pleasant and cooperative, well-nourished, well-developed female. VITAL SIGNS: Blood pressure 140/68, heart rate 60, respirations 16, temperature 98.7, oxygen saturation 93% on room air, weight 164 pounds with BMI of 32.71. HEENT: Unremarkable. NECK: Neck is supple. No JVD. LUNGS: Normal respiratory effort, clear to auscultation bilaterally. HEART: Regular rate and rhythm with no murmurs or gallops appreciated. ABDOMEN: Positive bowel sounds, soft and nontender. EXTREMITIES: Free of edema. NEUROLOGIC: She is alert and oriented. She is able to answer questions. She does not know the details of her medications. Otherwise, she can answer appropriately. Her speech is clear. She does not have any drift or focal changes noted. DIAGNOSTIC DATA: Laboratory data: CBC is unremarkable. Sodium is 136, potassium 4.3, BUN 17, creatinine 1.11. Triglycerides are 104, cholesterol 130, HDL 30, LDL 71. IMPRESSION/PLAN: 1. Weakness with change in speech at home. She came to the emergency room. Workup was negative in the emergency room. Tele Hea (more content not included)... [facility] 08-17-2022 Note . MICRO - Microbiology PROCEDURE: Blood Culture (bacterial) [*1] SOURCE: Blood BODY SITE: COLLECTED DATE/TIME: 08/11/2022 16:00 EST RECEIVED DATE/TIME: 08/12/2022 16:24 EST START DATE/TIME: 08/12/2022 16:25 EST FREE TEXT SOURCE: FINAL REPORTS Final Report [] Verified Date/Time/Personnel: 08/17/2022 16:59 EDT Blood Culture: No Growth at 5 days. PRELIMINARY REPORTS Preliminary Report [] Verified Date/Time/Personnel: 08/12/2022 16:59 EST Culture has been received in lab and is no growth to date. Routine cultures are held for 5 days. Performing Locations *1: This test was performed at: [facility], [address] [place] [address], [facility] , [facility] ([place]) 08-17-2022 Note . MICRO - Microbiology PROCEDURE: Blood Culture (bacterial) [*1] SOURCE: Blood BODY SITE: COLLECTED DATE/TIME: 08/11/2022 16:01 EST RECEIVED DATE/TIME: 08/12/2022 16:24 EST START DATE/TIME: 08/12/2022 16:25 EST FREE TEXT SOURCE: FINAL REPORTS Final Report [] Verified Date/Time/Personnel: 08/17/2022 16:59 EDT Blood Culture: No Growth at 5 days. PRELIMINARY REPORTS Preliminary Report [] Verified Date/Time/Personnel: 08/12/2022 16:59 EST Culture has been received in lab and is no growth to date. Routine cultures are held for 5 days. Performing Locations *1: This test was performed at: [facility], [address] [place] [address], [facility] , [facility] ([place]) 02-16-2022 Hospital Discharge instructions Patient Education 02/16/2022 14:24:35 Dizziness Dizziness Dizziness is a common problem. It is a feeling of unsteadiness or light-headedness. You may feel like you are about to faint. Dizziness can lead to injury if you stumble or fall. Anyone can become dizzy, but dizziness is more common in older adults. This condition can be caused by a number of things, including medicines, dehydration, or illness. Follow these instructions at home: Eating and drinking Drink enough fluid to keep your urine clear or pale yellow. This helps to keep you from becoming dehydrated. Try to drink more clear fluids, such as water. Do not drink alcohol. Limit your caffeine intake if told to do so by your health care provider. Check ingredients and nutrition facts to see if a food or beverage contains caffeine. Limit your salt (sodium) intake if told to do so by your health care provider. Check ingredients and nutrition facts to see if a food or beverage contains sodium. Activity Avoid making quick movements. ?Rise slowly from chairs and steady yourself until you feel okay. ?In the morning, first sit up on the side of the bed. When you feel okay, stand slowly while you hold onto something until you know that your balance is fine. If you need to back tender paper machine one place for a long time, move your legs often. Tighten and relax the muscles in your legs while you are standing. Do not drive or use heavy machinery if you feel dizzy. Avoid bending down if you feel dizzy. Place items in your home so that they are easy for you to reach without leaning over. Lifestyle Do not use any products that contain nicotine or tobacco, such as cigarettes and e-cigarettes. If you need help quitting, ask your health care provider. Try to reduce your stress level by using methods such as yoga or meditation. Talk with your health care provider if you need help to manage your stress. General instructions Watch your dizziness for any changes. Take [id number] and prescription medicines only as told by your health care provider. Talk with your health care provider if you think that your dizziness is caused by a medicine that you are taking. Tell a friend or a family member that you are feeling dizzy. If he or she notices any changes in your behavior, have this person call your health care provider. Keep all follow-up visits as told by your health care provider. This is important. Contact a health care provider if: Your dizziness does not go away. Your dizziness or light-headedness gets worse. You feel nauseous. You have reduced hearing. You have new symptoms. You are unsteady on your feet or you feel like the room is spinning. Get help right away if: You vomit or have diarrhea and are unable to eat or drink anything. You have problems talking, walking, swallowing, or using your arms, hands, or legs. You feel generally weak. You are not thinking clearly or you have trouble forming sentences. It may take a friend or family member to notice this. You have chest pain, abdominal pain, shortness of breath, or sweating. Your vision changes. You have any bleeding. You have a severe headache. You have neck pain or a stiff neck. You have a fever. These symptoms may represent a serious problem that is an emergency. Do not wait to see if the symptoms will go away. Get medical help right away. Call your local emergency services (911 in the [place] Do not drive yourself to the hospital. Summary Dizziness is a feeling of unsteadiness or light-headedness. This condition can be caused by a number of things, including medicines, dehydration, or illness. Anyone can become dizzy, but dizziness is more common in older adults. Drink enough fluid to keep your urine clear or pale yellow. Do not drink alcohol. Avoid making quick movements if you feel dizzy. Monitor your dizziness for any changes. This information is not intended to replace advice given to you by your health care provider. Make sure you discuss any questions you have with your health care provider. Document Released: 11/18/2001 Document Revised: 05/28/2018 Document Reviewed: 06/27/2017 [employer] Patient Education 2020 [employer]. Follow Up Care 02/16/2022 05:31:02 With:FERDINAND CLEANING Address: [address] [place] [address]- When:3-7 days [facility] 02-16-2022 Note Discharge Instructions Thank you for allowing [facility] to assist you with your healthcare needs. The following is important discharge information regarding your hospital visit. Your Care Team FERDINAND CLEANING What to do next Instructions From Your Doctor Clarification: No further aspirin. Only Plavix and Eliqius. Follow Up Appointments Follow Up with FERDINAND CLEANING When Within 3-7 days Where: [facility] [place] [address]- The Following Activity and Diet Have Been Ordered for You Discharge Activity - Ordered -- NO activity restrictions, 02/16/22 13:39:00 EDT Discharge Diet - Ordered -- No changes were made to your diet during your hospital stay. Please resume your pre hospitalization diet on discharge., 02/16/22 13:39:00 EDT The Following Equipment Has Been Ordered for You No qualifying data available. The Following Treatments Have Been Ordered for You Discharge Labs No qualifying data available. Discharge Radiology No qualifying data available. Other Therapies Discharge to Outpatient PT - Ordered -- Therapy Order: Outpatient PT Eval and Treat, suspected BPPV, Reason: Dizziness, May need vestibular therapy, 02/16/22 13:39:00 EDT Post Acute Orders No qualifying data available. Someone Will Contact You Regarding These Home Health Referrals No home referrals have been ordered for you. No one will call you. Allergies NKA Medications Please ask your primary doctor or pharmacist before taking any other medication not listed, including over the counter drugs, herbal medications, vitamins and or supplements as they may interact with your home medications. What How Much When Instructions Last Dose New apixaban (Eliquis 5 mg oral tablet) 1 tab(s) by mouth Two (2) times a day New meclizine (meclizine 12.5 mg oral tablet) 1 tab(s) by mouth Three (3) times a day as needed for Dizziness Duration: 7 Days Pickup at [facility] Unchanged atorvastatin (atorvastatin 20 mg oral tablet) 1 tab(s) by mouth Every day Unchanged calcium-vitamin D (Calcium 600+D) 1 tab(s) by mouth Every day Unchanged cloNIDine (cloNIDine 0.1 mg oral tablet) 1 tab(s) by mouth Two (2) times a day Unchanged clopidogrel (clopidogrel 75 mg oral tablet) 1 tab(s) by mouth Once a day Unchanged dulaglutide (Trulicity Pen 1.5 mg/ 0.5 mL subcutaneous solution) 0.5 Milliliter Subcutaneous Every week Unchanged famotidine (famotidine 20 mg oral tablet) 1 tab(s) by mouth Once a day Unchanged fluticasone nasal (fluticasone proprionate NASAL 50 mcg/ spray) 1 spray(s) each nostril Two (2) times a day Unchanged glipiZIDE (glipiZIDE 5 mg oral tablet) 1 tab(s) by mouth Two (2) times daily before meals Unchanged lisinopril (lisinopril 20 mg oral tablet) 1 tab(s) by mouth Every day Unchanged metoprolol (Metoprolol Succinate ER 50 mg oral TABLET extended release) See instructions Take 1 tablet by mouth twice daily Unchanged sertraline (sertraline 50 mg oral tablet) 1 tab(s) by mouth Every day Pharmacy Information [id number]: [address], [place] [id number] [phone] What How Much When Comments Stop Taking aspirin 81 Milligram by mouth Every day Stop Taking Misc Medication (CLOPIDOGREL 75MG TAB) Please take this list to your next doctor s visit. Bring all medications you take, including over the counter medications, herbals and other supplements with you to your doctor s visit. Patients and families are reminded to discard old lists and to update any records with all medication providers or retail pharmacies. Education Materials Dizziness Dizziness is a common problem. It is a feeling of unsteadiness or light-headedness. You may feel like you are about to faint. Dizziness can lead to injury if you stumble or fall. Anyone can become dizzy, but dizziness is more common in older adults. This condition can be caused by a number of things, including medicines, dehydration, or illness. Follow these instructions at home: Eating and drinking Drink enough fluid to keep your urine clear or pale yellow. This helps to keep you from becoming dehydrated. Try to drink more clear fluids, such as water. Do not drink alcohol. Limit your caffeine intake if told to do so by your health care provider. Check ingredients and nutrition facts to see if a food or beverage contains caffeine. Limit your salt (sodium) intake if told to do so by your health care provider. Check ingredients and nutrition facts to see if a food or beverage contains sodium. Activity Avoid making quick movements. ? Rise slowly from chairs and steady yourself until you feel okay. ? In the morning, first sit up on the side of the bed. When you feel okay, stand slowly while you hold onto something until you know that your balance is fine. If you need to back tender paper machine one place for a long time, move your legs often. Tighten and relax the muscles in your legs while you are standing. Do not drive or use heavy machinery if you feel dizzy. Avoid bending down if you feel dizzy. Place items in your home so that they are easy for you to reach without leaning over. Lifestyle Do not use any products that contain nicotine or tobacco, such as cigarettes and e-cigarettes. If you need help quitting, ask your health care provider. Try to reduce your stress level by using methods such as yoga or meditation. Talk with your health care provider if you need help to manage your stress. General instructions Watch your dizziness for any changes. Take cqcp-row-ftmbetl and prescription medicines only as told by your health care provider. Talk with your health care provider if you think that your dizziness is caused by a medicine that you are taking. Tell a friend or a family member that you are feeling dizzy. If he or she notices any changes in your behavior, have this person call your health care provider. Keep all follow-up visits as told by your health care provider. This is important. Contact a health care provider if: Your dizziness does not go away. Your dizziness or light-headedness gets worse. You feel nauseous. You have reduced hearing. You have new symptoms. You are unsteady on your feet or you feel like the room is spinning. Get help right away if: You vomit or have diarrhea and are unable to eat or drink anything. You have problems talking, walking, swallowing, or using your arms, hands, or legs. You feel generally weak. You are not thinking clearly or you have trouble forming sentences. It may take a friend or family member to notice this. You have chest pain, abdominal pain, shortness of breath, or sweating. Your vision changes. You have any bleeding. You have a severe headache. You have neck pain or a stiff neck. You have a fever. These symptoms may represent a serious problem that is an emergency. Do not wait to see if the symptoms will go away. Get medical help right away. Call your local emergency services (911 in the [place] Do not drive yourself to the hospital. Summary Dizziness is a feeling of unsteadiness or light-headedness. This condition can be caused by a number of things, including medicines, dehydration, or illness. Anyone can become dizzy, but dizziness is more common in older adults. Drink enough fluid to keep your urine clear or pale yellow. Do not drink alcohol. Avoid making quick movements if you feel dizzy. Monitor your dizziness for any changes. This information is not intended to replace advice given to you by your health care provider. Make sure you discuss any questions you have with your health care provider. Document Released: 11/18/2001 Document Revised: 05/28/2018 Document Reviewed: 06/27/2017 [employer] Patient Education 2020 [employer] Additional Information VACCINATE! IT SAVES LIVES! Members of the community who have not yet received the COVID-19 vaccine and would like to receive it can visit one of [facility] vaccine clinics. There are many vaccine clinic locations within the [facility]. For locations and available times, please visit [email or web address].[place].gov/. It is important to note that some COVID mobile vaccine clinics are held outdoors and may be canceled in rainy or stormy conditions. To learn more about pediatric vaccinations (ages 5-11), we invite you to visit the [facility] webpage. [email or web address].[email or web address].org/pag es/4545-Zqwos-Chpwzrflxzo-Frequent yx-Mbnsm-Gnpazxooe.html To learn more about the COVID-19 vaccine, we invite you to visit the [facility] website for a list of frequently asked questions. [email or web address]/assets/Patient f-ept-Rctioxyq/usttq-Ujmmczn-Qdysk ently_Asked-Questions.pdf [facility] Patient Portal Access Instructions: Stay connected with your healthcare team and access your personal medical information anytime with the [facility] Patient Portal.If you would like a full copy of your medical records, please contact the [facility] Medical Records Department, Thursday through Thursday between 8a.m. and 4:30p.m. Please follow the directions below to access the portal: 1.Access the email account you provided upon registration to the [facility].2.Look for an invitation email from [facility].3.Open the email and access the invitation link: Accept Invitation to [facility].Fill in the required shearer to create your account. Sign into [email or web address] Relevance with your username and password that you created in the above steps to stay up to date. You can then view a summary of results, a summary of your visits, and the ability to download your summaries to your computer or send the information securely to a physician. Remember that your healthcare information is confidential, so carefully consider who you will allow to register on the [facility] Patient Portal for access to your information. You can also access the [facility] Patient Portal on the [employer]. Simply click on Health Records under Health Data and then click on the [facility] logo. HOW TO SAFELY DISPOSE OF PRESCRIPTION MEDICATIONS Please use one of the following methods to safely dispose of your unused medications. 1.Use a drug disposal kit: the drug disposal pouch allows you to safely discard your old and unused drugs. Ask your nurse to give you one when you are discharged.2.Visit a local take-back location: Many local pharmacies and police departments have programs that collect old and unwanted prescription drugs. Call your local pharmacy or go to http://[employer].KnCMiner/4F7Lc5e to find one close to you.3.Make use of household items: Use cat litter or old coffee grounds to dispose medications if other options are not available. Mix your drugs with these household products, seal them in an airtight container and throw it into the garbage. Call [facility]: [phone] to be sure your drugs can be disposed of in this way. Some medicines may require a different approach.4.Never flush your medications down the toilet. IF YOU HAVE BEEN PRESCRIBED AN OPIOID FOR PAIN If you have been prescribed an opioid (such as hydrocodone, oxycodone or morphine), it is critical to understand the possible side effects and risks of opioid pain medications. Even when taken as directed, opioids can have several side effects including: Tolerance, meaning you might need to take more of a medication for the same pain relief. Nausea, vomiting and/or constipation. Sleepiness, dizziness, dry mouth, confusion, depression or itching. Physical dependence, meaning you have withdrawal symptoms when a medication is stopped, can develop within a few days. KNOW YOUR RESPONSIBILITIES It is important to know exactly how much and how often to take the opioid pain medications you are prescribed. Never take opioids in higher amounts or more often than prescribed. Do not combine opioids with alcohol or other drugs that cause drowsiness, such as benzodiazepines, also known as benzos, including diazepam and alprazolam, muscle relaxants or sleep aids. Never sell or share prescription opioids. This is illegal. Store opioids in a secure place and out of reach of others (including children, family, friends and visitors). The last page of this document has been signed and retained as a CHART COPY. Signatures Patient Education Materials Dizziness Medication Leaflets My discharge plan and instructions have been reviewed and explained to me and I,ROSIE GILBERT understand my current condition and have read and understand these discharge instructions. I have received a written copy of the plan/instructions. If I have questions, I am aware that I should contact my doctor. 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 Pt states her symptoms started yesterday morning, has had dizziness which shedescribes as everything spinning around her all day. P denies any headaches or blurred vision, denies any worsening weakness or numbness in arms or legs, denies speech or swallowing difficulty. Pt has no c/o chest pain, SOB, cough or fever, denies nausea, abd pain or diarrhea, no bloody stool or black stool. Denies dysuria. Pt lives alone, has blindness in one eye, does not drive. Due to a previous Hx DVT she is on eliquis. Pt had strokes, had CAD with stents andis on ASA, Plavix. Labs from outside hospital show slightly elevated creatinine of 1.25, CBC wnl. CT brain shows no e/o acute cortical CVA, mass effect or hemorrhage. Small lacunar infarct right basal ganglion. CTA neck severe stenosis v4 left vertebral artery due to calcified plaque. CTA brain shows diffusely small stenotic left vertebral artery. Past medical history: CAD - Coronary artery disease Diabetes HT - Hypertension Xqj-max-ndwxqdviewg corneal dystrophy Past surgical history: Cholecystectomy TL - Tubal ligation Family history: Mother: HTN - Hypertension; Heart disease; Stroke Sister: Cancer; Diabetes mellitus; HTN - Hypertension; Heart disease Brother: Diabetes mellitus; HTN - Hypertension; Heart disease Daughter: Heart disease Social history: No history of smoking cigarettes or alcohol consumption Home Medications (13) Active aspirin 81 mg, Oral, Daily atorvastatin 20 mg oral tablet 20 mg = 1 tab(s), Oral, Daily Calcium 600+D 1 tab(s), Oral, Daily cloNIDine 0.1 mg oral tablet 0.1 mg = 1 tab(s), Oral, BID clopidogrel 75 mg oral tablet 75 mg = 1 tab(s), Oral, qDay CLOPIDOGREL 75MG TAB famotidine 20 mg oral tablet 20 mg = 1 tab(s), Oral, qDay fluticasone proprionate NASAL 50 mcg/ spray 1 spray(s), Nostril, each, BID glipiZIDE 5 mg oral tablet 5 mg = 1 tab(s), Oral, BIDAC lisinopril 20 mg oral tablet 20 mg = 1 tab(s), Oral, Daily Metoprolol Succinate ER 50 mg oral TABLET extended release See Instructions sertraline 50 mg oral tablet 50 mg = 1 tab(s), Oral, Daily Trulicity Pen 1.5 mg/0.5 mL subcutaneous solution 1.5 mg = 0.5 mL, Subcutaneous, qWeek Allergies: NKA Review of systems: See HPI for pertinent positives and negatives. All other review of systems have been reviewed and they are negative. Vital Signs(last 24 hrs) Last Charted Temp OralH 37.8DegC (FEB 16:37) Heart Rate MonitoredL 52bpm (FEB 16:37) Resp Rate 18 br/min (FEB 16:37) BMI33.58 (FEB 16:40) Physical examination: Constitutional: Appears comfortable, looks appropriate for age HEENT: No Pallor, No Icterus, eomi, NO PALLOR Cardiac: RRR, No murmur Lungs: CTA, good air entry Abdomen: Soft, Non tender Musculoskeletal: No joint pains or swelling Extremities: No edema, good pulses Neurological: Alert, mild LUE, LLE WEAKNESS NOTED. Skin: No rash, no nodules Labs: No 36 Hour Lab Data Assessment and plan: 1.Dizziness: Pt likely has BPPV, posterior circulation stroke cannot be ruled out. COnsult PT, start meclizine, full stroke w/u with MRI brain, MRA head, neck, Echo, consult Neurology. For now continue ASA< Plavix, Eliquis. 2.HTN: Continue Homeds. 3.DM-2: COntinue home meds, start SSI, Check HgA1c. 4.CAD: Continue ASA, plavix, Lipitor. Check Lipid panel. Pt is full code, admitted to step down monitored bed. Signature: Rigo Reyes M.D. [facility] 09-11-2022 Discharge summary Date of Service February 16, 2022 Discharge Diagnosis Vertigo - Suspected BPPV History of venous thromboembolic disease History of coronary artery disease Diabetes mellitus type 2 Hyperlipidemia Hypertension Hospital Course Mrs. Gilbert presented with 1 day of acute vertigo. There were concerns for posterior stroke. MRI was done and negative for any acute disease. Neurology also evaluated her. It was felt that she should not be on aspirin, Plavix, and Eliquis all at the same time. This was simplified to Plavix and Eliquis at discharge. Her symptoms resolved. She was evaluated by physical and occupational therapies. Formal vestibular therapy is pending but will be done prior to her discharge. She was given a prescription in case vestibular therapy is needed as an outpatient. There is no further need for observation at this time and she will be discharged home. Her daughter was here at the bedside and agrees with th is plan of care. Echocardiogram with bubble study was done but the results are not available at this time. I will look for these results later and add them to this report. Of course I will call the patient in case there is anything grossly abnormal. Allergies NKA Code Status Code Status - Ordered -- 02/16/22 6:32:00 EDT, Full Code, Constant Order Admission Date February 16, 2022 Discharge Date February 16, 2022 Patient Instructions Clarification: No further aspirin. Only Plavix and Eliqius. Medications New Prescription apixaban (Eliquis 5 mg oral tablet)1 tab(s) by mouth two (2) times a day. meclizine (meclizine 12.5 mg oral tablet)1 tab(s) by mouth three (3) times a day as needed Dizziness for 7 Days. Refills: 0. Unchanged atorvastatin (atorvastatin 20 mg oral tablet)1 tab(s) by mouth every day. Refills: 6. calcium-vitamin D (Calcium 600+D)1 tab(s) by mouth every day. cloNIDine (cloNIDine 0.1 mg oral tablet)1 tab(s) by mouth two (2) times a day. clopidogrel (clopidogrel 75 mg oral tablet)1 tab(s) by mouth once a day. Refills: 0. dulaglutide (Trulicity Pen 1.5 mg/0.5 mL subcutaneous solution)0.5 Milliliter Subcutaneous every week. famotidine (famotidine 20 mg oral tablet)1 tab(s) by mouth once a day. fluticasone nasal (fluticasone proprionate NASAL 50 mcg/ spray)1 spray(s) each nostril two (2) times a day. glipiZIDE (glipiZIDE 5 mg oral tablet)1 tab(s) by mouth two (2) times daily before meals. lisinopril (lisinopril 20 mg oral tablet)1 tab(s) by mouth every day. metoprolol (Metoprolol Succinate ER 50 mg oral TABLET extended release)Take 1 tablet by mouth twicedaily. Refills: 2. sertraline (sertraline 50 mg oral tablet)1 tab(s) by mouth every day. Discontinued [id number] Milligram by mouth every day. Misc Medication (CLOPIDOGREL 75MG TAB) Follow Up Follow Up with [facility] When Within 3-7 days Where: [address] [place] [address]- Follow Up Labs/Studies Discharge Labs No Follow-up Labs Discharge Studies Discharge to Outpatient PT - Ordered -- Therapy Order: Outpatient PT Eval and Treat, suspected BPPV, Reason: Dizziness, May need vestibular therapy, 02/16/22 13:39:00 EDT Discharge Diet Discharge Diet - Ordered -- No changes were made to your diet during your hospital stay. Please resume your pre hospitalization diet on discharge., 02/16/22 13:39:00 EDT Discharge Activity Discharge Activity - Ordered -- NO activity restrictions, 02/16/22 13:39:00 EDT Condition on Discharge Improved Discharge Disposition Home Information Provided To Patient and daughter Digitally Signed by CATRACHO MONIQUE MD on 02/16/2022 01:46 PM [id number] Note ADDENDUM ADDENDUM: Examination is compared to MRI brain of 04/10/2020. A technical error resulted in the dictation template being inadvertently signed before the examination was reviewed. No acute intracranial hemorrhage, midline shift, mass effect or acute/recent infarct is present. The ruby-white matter junctions are preserved. Mild generalized parenchymal volume loss is demonstrated. Scattered FLAIR T2 hyperintensities within the subcortical, periventricular, deep white matter and karyna reflects mild chronic microvascular white matter ischemic disease. Remote infarcts involve the bilateral enriquez radiata, and thalami are seen. No space-occupying intra-axial masses or extra-axial fluid collections. No hemorrhagic blood products are seen. Mild dilatation of the right lateral ventricle is secondary to adjacent remote infarcts. No evidence of hydrocephalus. Signal flow voids are present. Post bilateral lens implant surgery. No paranasal or mastoid sinus disease. IMPRESSION: 1. No acute intracranial pathology. 2. Mild generalized parenchymal volume loss, chronic microvascular white matter ischemic disease and remote lacunar infarcts. Interpreted by: Alan Cochran MD Preliminary Report By: Alan Cochran MD Electronically signed By Alan Cochran MD Dictated Date: 02/16/2022 11:20:13 AM Prelim Date: 02/16/2022 11:25:49 AM Sign Date: 02/16/2022 11:25:49 AM Ordering Provider: RIGO REYES ORIGINAL EXAMINATION: MR Brain without intravenous contrast TECHNIQUE: MRI examination of the brain was obtained utilizing the following sequences: Sagittal T1-weighted, axial T2 FLAIR GRE and diffusion with ADC mapping images. COMPARISON: Comparison. HISTORY: ORDERING SYSTEM PROVIDED HISTORY: Reason for Exam: Dizziness. Stroke FINDINGS: Parenchyma: No acute intracranial hemorrhage, midline shift, mass effect or acute ischemic infarct is demonstrated. The ruby-white matter junctions are preserved. No space occupying intra-axial masses or extra-axial fluid collections are seen. No pathologic signal is identified in the white matter. Ventricles: No ventricular enlargement or ventricular effacement. Orbits: Normal. Major intracranial flow voids: Preserved. Paranasal sinuses: Clear. Mastoids and middle ears: Clear. Bones: Normal. Extracranial soft tissues: Normal. Additional comment: None. IMPRESSION: Unremarkable MRI examination of the brain. Interpreted by: Alan Cochran MD Preliminary Report By: Alan Cochran MD Electronically signed By Alan Cochran MD Dictated Date: 02/16/2022 11:16:15 AM Prelim Date: 02/16/2022 11:16:20 AM Sign Date: 02/16/2022 11:16:20 AM Ordering Provider: RIGO REYES [id number] Note ADDENDUM ADDENDUM: Examination is compared to MRI brain of 04/10/2020. A technical error resulted in the dictation template being inadvertently signed before the examination was reviewed. No acute intracranial hemorrhage, midline shift, mass effect or acute/recent infarct is present. The ruby-white matter junctions are preserved. Mild generalized parenchymal volume loss is demonstrated. Scattered FLAIR T2 hyperintensities within the subcortical, periventricular, deep white matter and karyna reflects mild chronic microvascular white matter ischemic disease. Remote infarcts involve the bilateral enriquez radiata, and thalami are seen. No space-occupying intra-axial masses or extra-axial fluid collections. No hemorrhagic blood products are seen. Mild dilatation of the right lateral ventricle is secondary to adjacent remote infarcts. No evidence of hydrocephalus. Signal flow voids are present. Post bilateral lens implant surgery. No paranasal or mastoid sinus disease. IMPRESSION: 1. No acute intracranial pathology. 2. Mild generalized parenchymal volume loss, chronic microvascular white matter ischemic disease and remote lacunar infarcts. Interpreted by: Alan Cochran MD Preliminary Report By: Alan Cochran MD Electronically signed By Alan Cochran MD Dictated Date: 02/16/2022 11:20:13 AM Prelim Date: 02/16/2022 11:25:49 AM Sign Date: 02/16/2022 11:25:49 AM Ordering Provider: RIGO REYES ORIGINAL EXAMINATION: MR Brain without intravenous contrast TECHNIQUE: MRI examination of the brain was obtained utilizing the following sequences: Sagittal T1-weighted, axial T2 FLAIR GRE and diffusion with ADC mapping images. COMPARISON: Comparison. HISTORY: ORDERING SYSTEM PROVIDED HISTORY: Reason for Exam: Dizziness. Stroke FINDINGS: Parenchyma: No acute intracranial hemorrhage, midline shift, mass effect or acute ischemic infarct is demonstrated. The ruby-white matter junctions are preserved. No space occupying intra-axial masses or extra-axial fluid collections are seen. No pathologic signal is identified in the white matter. Ventricles: No ventricular enlargement or ventricular effacement. Orbits: Normal. Major intracranial flow voids: Preserved. Paranasal sinuses: Clear. Mastoids and middle ears: Clear. Bones: Normal. Extracranial soft tissues: Normal. Additional comment: None. IMPRESSION: Unremarkable MRI examination of the brain. Interpreted by: Alan Cochran MD Preliminary Report By: Alan Cochran MD Electronically signed By Alan Cochran MD Dictated Date: 02/16/2022 11:16:15 AM Prelim Date: 02/16/2022 11:16:20 AM Sign Date: 02/16/2022 11:16:20 AM Ordering Provider: RIG[facility]EC[facility] [id number] Neurology Consult note Date of Service 02/16/2022 Reason for Consultation Dizziness Referring Physician Dr. Reyes History of Present Illness 76 yr F with PMH HTN, HLD, DM, H/O stroke with residual left sided weakness, H/O DVT on Eliquis admitted with dizziness. Per patient she started having dizziness yesterday morning, felt the room was spinning, denies any earache or ear tinnitus. At present patient denies any new onset focal deficits, speech disturbances, visual disturbances, headache, sensory loss. Per patient she has been on Eliquis as well as aspirin and Plavix for the past 2 years. Per patient she is on aspirin and Plavix from cardiology standpoint for the past 2 yrs. Per patient she had 7 strokes in the past. MRI brain done during this admission showed nothing acute. CTA head/neck done at OSH reported to show no LVO, but reported to show left vert stenosis, small stenotic basilar artery. Review of Systems Complete ROS negative except as documented in HPI. Physical Exam Vitals and Measurements T: 36.2 C (Oral) TMIN: 36.2 C (Oral) TMAX: 37.8 C (Oral) HR: 52 RR: 18 BP: 157/64 SpO2: 96% HT: 152.4 cm WT: 78 kg BMI: 33.58 Weight Dosing Weight: 78 kg (02/16/22) General Examination: conscious, alert, oriented, AoA x3 HEENT: normocephalic, pupils BERL Heart: normal S1 S2 Lungs: Bilateral air entry present Abdomen: bowel sounds present Psychiatry: Denies Anxiety, depression or suicidal ideations at present Neuro: Conscious, alert, oriented AoA x3, CN II-XII normal, no Nystagmus, EOMI, pupils BERL, No facial sensory loss, no facial asymmetry, tongue protrudes in midline, no uvula deviation, normal shoulder shrug, Power 5/5 B/L UE and LE, tone normal all 4 extremities, No tremors, No pronator drift, Reflexes + B/S/T/K/A, Plantars B/L flexor, No cerebellar signs, Romberg s deferred, No sensory loss tolight touch/temperature, normal joint/position/vibration sense, gait deferred, No frontal release signs. No involuntary movements, No NR, No Kernig s sign, No Brudzinski s sign, NIHSS 0 Lab Results 02/16 06:36 Glucose Level: 134 H Sodium Level: 141 Potassium Level: 3.9 BUN: 18.0 Creatinine Lvl (s): 0.[address] Imaging Results [address] CT brain done at OSH reported nothing acute. Small lacunar infarct right basal ganglion. CTA head/neck done at OSH reported no LVO, reported to show severe stenosis v4 left vertebral artery due to calcified plaque. MRI Brain w/o Contrast Result Date: February 16, 2022 Verified By: ALAN COCHRAN MD CLINICAL STATEMENT: IMPRESSION: 1. No acute intracranial pathology.2. Mild generalized parenchymal volume loss, chronicmicrovascular whitematter ischemic disease and remote lacunar infarcts. Assessment/Plan 76 yr F with PMH HTN, HLD, DM, H/O stroke with residual left sided weakness, H/O DVT on Eliquis admitted with dizziness. Per patient she started having dizziness yesterday morning, felt the room was spinning, denies any earache or ear tinnitus. At present patient denies any new onset focal deficits, speech disturbances, visual disturbances, headache, sensory loss. Per patient she has been on Eliquis as well as aspirin and Plavix for the past 2 years. Per patient she is on aspirin and Plavix from cardiology standpoint for the past 2 yrs. Per patient she had 7 strokes in the past. MRI brain done during this admission showed nothing acute. CTA head/neck done at OSH reported to show no LVO, but reported to show left vert stenosis, small stenotic basilar artery. Impressions: Dizziness- likely peripheral etiology vs ? VBI Basilar stenosis Left vert stenosis Plan: -MRI brain w/o contrast nothing acute -CTA head/neck no LVO, left vert stenosis, basilar stenosis -Labs reviewed -Eliquis 5 mg BID at baseline for DVT. On ASA/Plavix at baseline from Cardiology standpoint, avoid triple therapy. Bleeding risks present and discussed in detail with the patient. Will discontinue ASA, patient to be only on Eliquis and Plavix. Increased bleeding risks present. -On atorvastatin 20 mg p.o. nightly. -Consider Cardiology consult for loop recorder implantation -Avoid hypotension -Vestibular therapy -ENT consult as outpatient -Check orthostatic vitals -Defer Cardiology work up to primary medical team -GI/DVT prophylaxis -PT/OT/ST -Fall precautions -Further medical management per medical team -Patient counseled the risks and health hazards of smoking, excessive alcohol intake, marijuana/cocaine/drug abuse and patient counseled not to smoke cigarettes, drink excessive alcohol as well as not to smoke marijuana. Patient understands the same. -Follow up with Neurology in 4-6 weeks as outpatient -Please call with questions if any. -Thank you for allowing us to participate in patients care and management. -All questions were answered -Will sign off at present. Please call with questions if any in the interim This note has been generated using [employer] software. It may contain incorrect words, punctuation's and spellings that were not noted in the review of the note prior to signing. 60 mins was spent in [id number] time and coordination of care for this patient, including but notlimited to personally gathering history, examining the patient, reviewing labs and images and records, counseling patient and/or family about diagnosis and potential workup if applicable, as detailedabove as well as discussing the case with patient's nurse/medical team where applicable. Problem List/Past Medical History Ongoing CAD - Coronary artery disease Diabetes HT - Hypertension Age-sns-cplsqxhlpzz corneal dystrophy Historical No qualifying data Procedure/Surgical History Cholecystectomy TL - Tubal ligation Medications Inpatient aspirin, 81 mg= 1 tab(s), Oral, Daily atorvastatin, 20 mg= 1 tab(s), Oral, Daily calcium (as carbonate)-vitamin D 500 mg-200 intl units oral tablet, 1 tab(s), Oral, Daily cloNIDine, 0.1 mg= 1 tab(s), Oral, BID clopidogrel, 75 mg= 1 tab(s), Oral, qDay DuoNeb, 3 mL, Inhalation, q4hRT, PRN famotidine, 20 mg= 1 tab(s), Oral, qDay fluticasone 50 mcg/inh NASAL spray, 50 mcg= 1 spray(s), Nostril, each, BID glipiZIDE 5 mg oral tablet, 5 mg= 1 tab(s), Oral, BIDAC HumaLOG 100 units/mL subcutaneous solution, Give 0-10 units/dose, Subcutaneous, TIDAC lisinopril, 20 mg= 1 tab(s), Oral, Daily meclizine, 12.5 mg= 1 tab(s), Oral, TID, PRN melatonin, 3 mg= 1 tab(s), Oral, qHS, PRN metoprolol succinate 50 mg oral TABLET extended release, 50 mg= 1 tab(s), Oral, BID Percocet 325/5, 1 tab(s), Oral, q4h, PRN sertraline, 50 mg= 1 tab(s), Oral, Daily Trulicity Pen, 1.5 mg= 0.5 mL, Subcutaneous, Thursday Tylenol, 650 mg= 2 tab(s), Oral, q4h, PRN Tylenol, 650 mg= 2 tab(s), Oral, q4h, PRN Tylenol, 650 mg= 2 tab(s), Oral, q4h, PRN Tylenol, 650 mg= 1 supp, Rectal, q4h, PRN Zofran, 4 mg= 2 mL, IV Push, q4h, PRN Home aspirin, 81 mg, Oral, Daily atorvastatin 20 mg oral tablet, 20 mg= 1 tab(s), Oral, Daily, 6 refills Calcium 600+D, 1 tab(s), Oral, Daily cloNIDine 0.1 mg oral tablet, 0.1 mg= 1 tab(s), Oral, BID clopidogrel 75 mg oral tablet, 75 mg= 1 tab(s), Oral, qDay CLOPIDOGREL 75MG TAB famotidine 20 mg oral tablet, 20 mg= 1 tab(s), Oral, qDay fluticasone proprionate NASAL 50 mcg/ spray, 1 spray(s), Nostril, each, BID glipiZIDE 5 mg oral tablet, 5 mg= 1 tab(s), Oral, BIDAC lisinopril 20 mg oral tablet, 20 mg= 1 tab(s), Oral, Daily Metoprolol Succinate ER 50 mg oral TABLET extended release, See Instructions sertraline 50 mg oral tablet, 50 mg= 1 tab(s), Oral, Daily Trulicity Pen 1.5 mg/0.5 mL subcutaneous solution, 1.5 mg= 0.5 mL, Subcutaneous, qWeek Allergies NKA Social History Smoking Status - 03/13/2014 Never smoker Family History Cancer: Sister. Diabetes mellitus: Sister and Brother. HTN - Hypertension: Mother, Sister and Brother. Heart disease: Mother, Sister, Brother and Daughter. Stroke: Mother. Father: History is negative Son: History is negative Immunizations No qualifying data available. Digitally Signed by STEWART CASTELLANOS MD on 02/16/2022 12:02 PM [facility] [id number] History and physical note [facility] History and Physical Chief Complaint Dizziness .History of present illness: Ms.Jane Gilbert is a 76 yr old lady with a Hx DM-2, HTN, CAD s/p stents, CVA with residual left sided weakness presents as a transfer from [facility] due to Dizziness. Pt states her symptomsstarted yesterday morning, has had dizziness which shedescribes as everything spinning around her all day. P denies any headaches or blurred vision, denies any worsening weakness or numbness in arms or legs, denies speech or swallowing difficulty. Pt has no c/o chest pain, SOB, cough or fever, denies nausea, abd pain or diarrhea, no bloody stool or black stool. Denies dysuria. Pt lives alone, has blindness in one eye, does not drive. Due to a previous Hx DVT she is on eliquis. Pt had strokes, had CAD with stents andis on ASA, Plavix. Labs from outside hospital show slightly elevated creatinine of 1.25, CBC wnl. CT brain shows no e/o acute cortical CVA, mass effect or hemorrhage. Small lacunar infarct right basal ganglion. CTA neck severe stenosis v4 left vertebral artery due to calcified plaque. CTA brain shows diffusely small stenotic left vertebral artery. Past medical history: CAD - Coronary artery disease Diabetes HT - Hypertension Lbg-loc-ldyiykgpumo corneal dystrophy Past surgical history: Cholecystectomy TL - Tubal ligation Family history: Mother: HTN - Hypertension; Heart disease; Stroke Sister: Cancer; Diabetes mellitus; HTN - Hypertension; Heart disease Brother: Diabetes mellitus; HTN - Hypertension; Heart disease Daughter: Heart disease Social history: No history of smoking cigarettes or alcohol consumption Home Medications (13) Active aspirin 81 mg, Oral, Daily atorvastatin 20 mg oral tablet 20 mg = 1 tab(s), Oral, Daily Calcium 600+D 1 tab(s), Oral, Daily cloNIDine 0.1 mg oral tablet 0.1 mg = 1 tab(s), Oral, BID clopidogrel 75 mg oral tablet 75 mg = 1 tab(s), Oral, qDay CLOPIDOGREL 75MG TAB famotidine 20 mg oral tablet 20 mg = 1 tab(s), Oral, qDay fluticasone proprionate NASAL 50 mcg/ spray 1 spray(s), Nostril, each, BID glipiZIDE 5 mg oral tablet 5 mg = 1 tab(s), Oral, BIDAC lisinopril 20 mg oral tablet 20 mg = 1 tab(s), Oral, Daily Metoprolol Succinate ER 50 mg oral TABLET extended release See Instructions sertraline 50 mg oral tablet 50 mg = 1 tab(s), Oral, Daily Trulicity Pen 1.5 mg/0.5 mL subcutaneous solution 1.5 mg = 0.5 mL, Subcutaneous, qWeek Allergies: NKA Review of systems: See HPI for pertinent positives and negatives. All other review of systems have been reviewed and they are negative. Vital Signs(last 24 hrs) Last Charted Temp OralH 37.8DegC (FEB 16 05:37) Heart Rate MonitoredL 52bpm (FEB 16 05:37) Resp Rate 18 br/min (FEB 16 05:37) BMI33.58 (FEB 16 05:40) Physical examination: Constitutional: Appears comfortable, looks appropriate for age HEENT: No Pallor, No Icterus, eomi, NO PALLOR Cardiac: RRR, No murmur Lungs: CTA, good air entry Abdomen: Soft, Non tender Musculoskeletal: No joint pains or swelling Extremities: No edema, good pulses Neurological: Alert, mild LUE, LLE WEAKNESS NOTED. Skin: No rash, no nodules Labs: No 36 Hour Lab Data Assessment and plan: 1.Dizziness: Pt likely has BPPV, posterior circulation stroke cannot be ruled out. COnsult PT, start meclizine, full stroke w/u with MRI brain, MRA head, neck, Echo, consult Neurology. For now continue ASA< Plavix, Eliquis. 2.HTN: Continue Homeds. 3.DM-2: COntinue home meds, start SSI, Check HgA1c. 4.CAD: Continue ASA, plavix, Lipitor. Check Lipid panel. Pt is full code, admitted to step down monitored bed. Signature: Rigo Reyes M.D. Digitally Signed by RIGO REYES MD on 02/16/2022 07:35 AM [facility] [id number] NoteHNO ID: [id number] Author: Joseline (Rn) ZAKIA Melara Service: ? Author Type: Registered Nurse Type: Patient Education Filed: 09/12/2020 3:33 PM Note Text: Pt instructed about 30 day event monitor and verbalizes [facility]04-07-2021 NoteHNO ID: [id number] Author: Jeff Weber Service: ? Author Type: Physician Type: Progress Notes Filed: 09/12/2020 1:41 PM Note Text: Patient was referred to the office for TIA involving the left internal carotid artery but she does not have internal carotid artery stenosis. In addition to this the patient was also being worked up for temporal arteritis as she basically has complaints of head pain. Her pain is over her entire head that radiates down the back of her neck. When specifically asked if it is over her temporal artery she denies this. She states that the thing seems to come or go nothing seems to trigger it in particular and the pain medications from ibwg-zao-wrvsqpl Tylenol Naprosyn ibuprofen have not helped. Overall she was referred I think because of temporal arteritis however work-up for temporal arteritis is negative in terms of the sed rate and C-reactive protein being normal. I did make a call Dr. Neal's office and he is out on vacation at this time but I did speak with his partner Dr. Maciel and discussed the patient's case with him. I tell him that I have never seen a patient with a completely normal sed rate and C-reactive protein without specific symptomatology of visual changes or something more specific that has ever had a positive biopsy. With that being the case I discussed with him the fact that I think that what I would like to do here is let her complete the other work-up that Dr. Neal has arranged for her including her SAMIRA and if that work-up is negative and he still has a strong feeling that he wants a biopsy we could consider it at that time. Otherwise I think that this would be a biopsy that would run the patient the risks of the biopsy without any expected benefit. I discussed all of this with the patient tell her we will be glad to see her back if Dr. Neal feels it is necessary. This note was generated with [employer] dictation software. It may contain incorrect words, spelling, and punctuation and that were not noted in review of the chart prior to signing. I spent 20 minutes in the visit, with more than 50% of the total ejqz-vq-ovsv time of the visit in counseling / coordination of care.[facility]04-01-2021 NoteHNO ID: [id number] Author: Irineo Neal Jr. Service: ? Author Type: Physician Type: Progress Notes Filed: 09/06/2020 12:21 PM Note Text: ALHAJI Frias PAC [address] [place] [address] Rosie Gilbert is a 75 year old female who presents for followup evaluation of stroke and spells of neurologic dysfunction -Date of last stroke event (enter as much detail as possible; if not known, provide estimate): Estimated date - April 22, 2020 Interval History: The last time I had seen her she was complaining of sudden ataxia. I recommended hospital admission which she declined and instead we got STAT outpatient brain and C-spine MRIs which were both normal/ no acute pathology. She said she was admitted to [facility] with a stroke in April 2020 and that they told her it was on the right front part of her brain. Since then, she complains of terrible stabbing pains in her temples bilaterally. She says her PCP told her she needs a temporal artery biopsy but has not arranged it because she wanted me to see you about the headaches first. . She denied having had a SAMIRA or being sent home on a 30-day event monitor after her hospitalization in [place]. She says she had a facial droop and LEFT leg weakness and some expressive aphasia as the result of her April stroke. Her sister and mother both of a stroke and had carotid disease. The patient herself did NOT have significant carotid stenosis on her CTA neck-brain less than a year ago and is on a whopping dose of 40mg daily of Crestor. Medical History: PAST MEDICAL HISTORY Diagnosis Date - Anxiety - Daytime somnolence - Depression - Diabetes mellitus type 2 (HCC) - Dysphagia - Epigastric pain - History of CVA (cerebrovascular accident) ocular manifestation - Hyperlipidemia - Hypertension - Hypothyroidism - Lymphadenopathy, submandibular - Osteoarthritis - Osteopenia - Sleep apnea - Stroke (HCC) 04/2020 Surgical History: PAST SURGICAL HISTORY Procedure Laterality Date - BUNIONECTOMY, LAPIDUS-TYPE 03/03/09 left - Dr. Jay - CHOLECYSTECTOMY HX age 42 - COLONOSCOP W/ OR W/O [facility] SPEC 09/20/2010 Colonoscopy - EXCIS TENDN/CAPSULE LESN,FOOT 01/10 right - LAMINECTOMY,LUMBAR 1999, 2001 first surgery - not helpful, second done Dr. Duran - LITHOTRIPSY / 1 SIDE 10/14 Lithotripsy- Dr. Potts - TUBAL LIGATION HX Current Outpatient Medications Medication Sig - famotidine (PEPCID) 20 mg tablet Take 20 mg by mouth once daily. - pantoprazole DR (PROTONIX) 20 mg tablet - repaglinide (PRANDIN) 1 mg tablet Take 1 mg by mouth three times daily with meals. - cholecalciferol, vitamin D3, (VITAMIN D3 ORAL) Take by mouth one time a week. Once a week for 3 months - cloNIDine HCl (CATAPRES) 0.1 mg tablet Take 0.1 mg by mouth twice daily. - clopidogrel (PLAVIX) 75 mg tablet - hydroCHLOROthiazide (HYDRODIURIL, ESIDRIX) 25 mg tablet Take 25 mg by mouth once daily. - HUMALOG KWIKPEN INSULIN 100 unit/mL INJECT 5 UNITS SUBCUTANEOUSLY WITH LARGEST MEAL - escitalopram oxalate (LEXAPRO) 20 mg tablet Take 20 mg by mouth once daily. - ezetimibe (ZETIA) 10 mg tablet Take 10 mg by mouth once daily. - LANTUS SOLOSTAR U-100 INSULIN 100 unit/mL (3 mL) inpn INJECT 44 UNITS SUBCUTANEOUSLY ONCE DAILY AT NIGHT AT BEDTIME - levothyroxine (SYNTHROID) 25 mcg tablet Take 25 mcg by mouth once daily. - metoprolol succinate ER (TOPROL XL) 50 mg 24 hr tablet Take 50 mg by mouth twice daily. - TRULICITY 1.5 mg/0.5 mL pnij INJECT 1 SYRINGE SUBCUTANEOUSLY EVERY WEEK - insulin needles, DISPOSABLE, 31 gauge x 5/16 ndle USE DIRECTED WITH BEDTIME INSULIN ONCE DAILY. - rosuvastatin (CRESTOR) 40 mg tablet Take 40 mg by mouth daily at bedtime. - Aspirin 81 mg ORAL Tab Take 81 mg by mouth. - blood sugar diagnostic(BLOOD GLUCOSE TEST STRIPS) [id number] avia machine - test with strips twice a day - VASCEPA 1 gram cap Take 2 capsules by mouth twice daily. (Patient not taking: Reported on 09/06/2020 ) - amLODIPine (NORVASC) 5 mg tablet Take 10 mg by mouth once daily. (Patient not taking: Reported on 09/06/2020 ) - simvastatin (ZOCOR) 40 mg tablet Take 40 mg by mouth daily at bedtime. (Patient not taking: Reported on 09/06/2020 ) - meclizine (ANTIVERT) 12.5 mg tab (Patient not taking: Reported on 09/06/2020 ) - omeprazole (PRILOSEC) 20 mg capsule Take 20 mg by mouth once daily. (Patient not taking: Reported on 09/06/2020 ) - lisinopril (ZESTRIL, PRINIVIL) 20 mg tablet Take 20 mg by mouth once daily. (Patient not taking: Reported on 09/06/2020 ) - sertraline (ZOLOFT) 100 mg tablet Take 100 mg by mouth once daily. (Patient not taking: Reported on 09/06/2020 ) - gabapentin (NEURONTIN) 100 mg ORAL capsule Take one(1) tablet three times daily. (Patient not taking: No sig reported) - metoprolol tartrate(LOPRESSOR 50 MG TAB) Take one tab (50mg (more content not included)...[facility]09-24-2020 NoteHNO ID: [id number] Author: Irineo Neal Jr. Service: ? Author Type: Physician Type: Progress Notes Filed: 03/02/2020 4:55 PM Note Text: ALHAJI Frias PAC [address] [place] [address] Rosie Gilbert is a 74 year old female who presents for followup evaluation of stroke, TIA and spells of neurologic dysfunction -Date of last stroke event (enter as much detail as possible; if not known, provide estimate): January 20, 2019 Interval History: She did see her therapy manager and was not noted to have glaucoma or any other significant ocular abnormalities. Neurologically she was doing great until last week when one day she abruptly developed new ataxia of gait and has been tending to stagger and fall to the right since then. It was constantly this way until Thursday and has been intermittent since then. No other accompanying neurological symptoms and she specifically denies any diplopia or dysarthria numbness weakness incoordination or other neurological events or symptoms to a detailed list. She has been checking her blood sugars and they have not been unduly high or low. Her blood pressure intact in the office today was perfect at 122/78. Medical History: PAST MEDICAL HISTORY Diagnosis Date - Anxiety - Daytime somnolence - Depression - Diabetes mellitus type 2 (HCC) - Dysphagia - Epigastric pain - History of CVA (cerebrovascular accident) ocular manifestation - Hyperlipidemia - Hypertension - Hypothyroidism - Lymphadenopathy, submandibular - Osteoarthritis - Osteopenia - Sleep apnea Surgical History: PAST SURGICAL HISTORY Procedure Laterality Date - BUNIONECTOMY, LAPIDUS-TYPE 03/03/09 left - Dr. Jay - CHOLECYSTECTOMY HX age 42 - COLONOSCOP W/ OR W/O [facility] SPEC 09/20/2010 Colonoscopy - EXCIS TENDN/CAPSULE LESN,FOOT 01/10 right - LAMINECTOMY,LUMBAR 1999, 2001 first surgery - not helpful, second done Dr. Duran - LITHOTRIPSY / 1 SIDE 10/14 Lithotripsy- Dr. Potts - TUBAL LIGATION HX Current Outpatient Medications Medication Sig - cholecalciferol, vitamin D3, (VITAMIN D3 ORAL) Take by mouth one time a week. Once a week for 3 months - cloNIDine HCl (CATAPRES) 0.1 mg tablet Take 0.1 mg by mouth twice daily. - clopidogrel (PLAVIX) 75 mg tablet - hydroCHLOROthiazide (HYDRODIURIL, ESIDRIX) 25 mg tablet Take 25 mg by mouth once daily. - VASCEPA 1 gram cap Take 2 capsules by mouth twice daily. - HUMALOG KWIKPEN INSULIN 100 unit/mL INJECT 5 UNITS SUBCUTANEOUSLY WITH LARGEST MEAL - Alpha Lipoic Acid 300 mg cap Take 1 capsule by mouth twice daily with meals. - amLODIPine (NORVASC) 5 mg tablet Take 10 mg by mouth once daily. - escitalopram oxalate (LEXAPRO) 20 mg tablet Take 20 mg by mouth once daily. - ezetimibe (ZETIA) 10 mg tablet Take 10 mg by mouth once daily. - LANTUS SOLOSTAR U-100 INSULIN 100 unit/mL (3 mL) inpn INJECT 44 UNITS SUBCUTANEOUSLY ONCE DAILY AT NIGHT AT BEDTIME - levothyroxine (SYNTHROID) 25 mcg tablet Take 25 mcg by mouth once daily. - metoprolol succinate ER (TOPROL XL) 50 mg 24 hr tablet Take 50 mg by mouth twice daily. - TRULICITY 1.5 mg/0.5 mL pnij INJECT 1 SYRINGE SUBCUTANEOUSLY EVERY WEEK - simvastatin (ZOCOR) 40 mg tablet Take 40 mg by mouth daily at bedtime. - insulin needles, DISPOSABLE, 31 gauge x /16 ndle USE DIRECTED WITH BEDTIME INSULIN ONCE DAILY. - meclizine (ANTIVERT) 12.5 mg tab - rosuvastatin (CRESTOR) 40 mg tablet Take 40 mg by mouth daily at bedtime. - omeprazole (PRILOSEC) 20 mg capsule Take 20 mg by mouth once daily. - atorvastatin (LIPITOR) 20 mg tablet Take 20 mg by mouth once daily. - lisinopril (ZESTRIL, PRINIVIL) 20 mg tablet Take 20 mg by mouth once daily. - sertraline (ZOLOFT) 100 mg tablet Take 100 mg by mouth once daily. - Aspirin 81 mg ORAL Tab Take 81 mg by mouth. - gabapentin (NEURONTIN) 100 mg ORAL capsule Take one(1) tablet three times daily. - blood sugar diagnostic(BLOOD GLUCOSE TEST STRIPS) [employer] machine - test with strips twice a day - metoprolol tartrate(LOPRESSOR 50 MG TAB) Take one tab (50mg) in the AM and one-half tab (25mg) in the PM - metformin hcl(GLUCOPHAGE 500 MG TAB) Take 2 tablets Twice daily- PO with meals (Patient not taking: ) No current facility-administered medications for this visit. REVIEW OF SYSTEMS: ALLERGIES No Known Allergies General: No unexplained weight loss or gain, fatigue, fever, chills, sweats Cardiac: No palpitations, chest pain, angina, known history of CAD GI: No peptic ulcer disease, GI bleeding, GERD. No liver disease or failure unless otherwise noted as follows. Endocrine: No polyurea, polydipsia, polyphagia or h/o diebetes. No heat or cold intolerance. Psychiatric: No depresssion, anxiety. Neurological: Negative including pain, falls, dysphagia Examination: BP 122/78 (BP Site: Left Arm, BP Position: Sitting, BP Cuff (more content not included)...[facility] No data available for this section [facility] Summary Purpose Family History No Family History Records FoundNo Family History Records FoundNo Family History Records FoundNo Family History Records FoundNo Family History Records FoundNo Family History Records FoundNo Family History Records Found Advance Directives No Advanced Directives Records FoundNo Advanced Directives Records FoundNo Advanced Directives Records FoundNo Advanced Directives Records FoundNo Advanced Directives Records FoundNo Advanced Directives Records FoundNo Advanced Directives Records Found Additional Source Comments INFORMATION SOURCE (unrecogn ized section and content) DATE CREATED AUTHOR AUTHOR'S ORGANIZ ATION 11/17/2020 [facility] DATE CREATED AUTHOR AUTHOR'S ORGANIZ ATION 11/18/2020 [facility] DATE CREATED AUTHOR AUTHOR'S ORGANIZ ATION 07/12/2022 [facility] DATE CREATED AUTHOR AUTHOR'S ORGANIZ ATION 08/17/2022 [facility] DATE CREATED AUTHOR AUTHOR'S ORGANIZ ATION 03/14/2023 [facility] DATE CREATED AUTHOR AUTHOR'S ORGANIZ ATION [facility]2023 [facility] Care Team (unrecognized sect ion and content) Care Team Personnel Name: Sally Galeas Clerboo Jane PT Position: P3 Scheduling - [employer] Advanced Member Role: Other Name: [employer] Member Role: Primary Care Physician Address: Address: [address] [place] [address] [address] [place], [place] [address] FOR RECORDS PERTAINING TO PATIENTS WHO ARE OR HAVE BEEN ENROLLED IN A CHEMICAL DEPENDENCY/SUBSTANCEABUSE PROGRAM, SOME INFORMATION MAY BE OMITTED. This clinical summary was aggregated from multiple sources. Caution should be exercised in using it in the provision of clinical care. This summary normalizes information from multiple sources, and as a consequence, information in this document may materially change the coding, format and clinical context of patient data. In addition, data may be omitted in some cases. CLINICAL DECISIONS SHOULD BE BASED ON THE PRIMARY CLINICAL RECORDS. [facility] [employer] provides no warranty or guarantee of the accuracy or completeness of information in this document.
== END | disposition home or self-care (01) ==
PROVIDERS: PCP Internal Medicine; Referring Provider Nurse Practitioner Gerontology; Visit Provider Nurse Practitioner Gerontology
DX: R06.00 Dyspnea, unspecified (principal)
CPT/HCPCS: 36415; 80048; 83880; 85025

== ENCOUNTER → 2024-04-20 | Outpatient (CLI) | payer MEDICARE, OTHER, MEDICAID, SELFPAY ==
[2019-07-20 11:30] VITALS: BMI 30.6
[2024-04-20 13:05] LABS: Absolute Lymphocyte Count 3.34 X10^3/uL (0.83-4.51); Absolute Neutrophil Count 6.5 X10^3/uL (2.0-7.7); Basophil# 0.08 X10^3/uL; Basophil% 0.7 % (0-1); Eosinophil# 0.38 X10^3/uL; Eosinophils% 3.4 % (0-5); Hematocrit 42.9 % (37-47); Lymphocyte # 3.34 X10^3/ul (0.83-4.51); Lymphocyte % 30.2 % (19-41); Mean Corp Hgb Conc 32.6 g/dL (32-36); Mean Corpuscular Hgb 30.8 pg (27.0-32.0); Mean Corpuscular Volume 94.5 fL (81-99); Monocyte# 0.68 X10^3/uL; Monocyte% 6.2 % (0-10); NRBC Flagged by Analyzer 0 % (0-5); Neutrophil # 6.54 X10^3/uL (2.7-7.7); Neutrophil % 59.2 % (47-70); Platelet Count 339 K/mm3 (150-450); RBC Distribution Width CV 13.2 % (11.6-14.6); RBC Distribution Width SD 45.4 fl (35.1-43.9); Red Blood Count 4.54 M/mm3 (4.2-5.4); White Blood Count 11.1 K/mm3 (4.4-11.0)
[2024-04-20 13:40] LABS: Anion Gap 4 (5-15); BUN 16 mg/dL (7-18); BUN/Creat Ratio 16.4 RATIO (10-20); Calcium,Total 10.2 mg/dL (8.5-10.1); Chloride 103 mmol/L (98-107); Creatinine, Serum 0.97 mg/dL (0.55-1.02); EST Glomerular Filtration Rate 59 mL/min (>60); Est Glom Filt Rate - Afr Amer 71 mL/min (>60); Glucose 168 mg/dL (74-106); Magnesium 1.8 mg/dL (1.6-2.6); Potassium 4.1 mmol/L (3.5-5.1); Sodium Level 135 mmol/L (136-145)
== END | disposition home or self-care (01) ==
LOC: LAB 12:30
PROVIDERS: PCP Internal Medicine; Referring Provider Nurse Practitioner Family; Visit Provider Nurse Practitioner Family
DX: R06.00 Dyspnea, unspecified (principal); I25.10 Atherosclerotic heart disease of native coronary artery without angina pectoris; R00.2 Palpitations; I10 Essential (primary) hypertension; E78.5 Hyperlipidemia, unspecified
CPT/HCPCS: 36415; 80048; 83735; 83880; 85025

== ENCOUNTER → 2024-05-19 | Outpatient (CLI) | payer MEDICARE, OTHER, MEDICAID, SELFPAY ==
[2019-07-20 11:30] VITALS: BMI 30.6
--- NOTE | 2024-05-23 07:43 | STRESSREP ---
Stress Test Report Pharmacologic myocardial perfusion stress test. 78-year-old lady with a history of coronary disease and dyspnea Resting EKG demonstrates sinus rhythm with a rate of 65 bpm. Resting blood pressure is 130/82 mmHg. 0.4 mg of regadenoson was infused per usual protocol followed by rapid intravenous saline flush injection. Continuous EKG monitoring was performed. The maximum heart rate was 82 bpm which was 56% of max impacted heart rate the maximum workload was 1 metabolic equivalent. At rest there were no ST or T wave changes noted to suggest ischemia and at peak infusion nonspecific ST changes were noted which did not meet the criteria for ischemia. No clinical angina is noted. The final blood pressure was 128/72 mmHg. Myocardial perfusion protocol. 13.2 mCi of technetium 99m sestamibi was injected at rest. 0.4 mg of regadenoson was infused per usual protocol. At peak infusion 39.7 mCi of technetium 99m sestamibi was injected stress images were obtained stress and rest images were reconstructed and compared in the short axis vertical long and horizontal long axis. Gated images were also obtained. Perfusion SPECT analysis: Review of the stress images demonstrate normal uptake of tracer noted in all areas of the myocardium. The resting images similar demonstrated normal uptake of tracer noted in all areas of the myocardium. No areas of reversibility are noted to suggest ischemia and no previous infarct is noted. Gated SPECT analysis: The gated ejection fraction is 85%. Conclusion: Normal pharmacologic myocardial perfusion stress test. Preserved ejection fraction.
== END | disposition home or self-care (01) ==
LOC: CVS 07:03
PROVIDERS: PCP Internal Medicine; Referring Provider Nurse Practitioner Family; Visit Provider Nurse Practitioner Family
DX: R00.2 Palpitations (principal); E11.9 Type 2 diabetes mellitus without complications; I25.10 Atherosclerotic heart disease of native coronary artery without angina pectoris; I10 Essential (primary) hypertension; E78.5 Hyperlipidemia, unspecified
CPT/HCPCS: 78452; 93017; A9500; A4216; J2785